=== PATIENT | female | born 1945 | race Caucasian/White ===

== ENCOUNTER → 2016-06-27 | Outpatient (CLI) | payer MEDICARE ==
--- NOTE | 2016-06-27 15:29 | CR ---
EXAMINATION: Left knee HISTORY: Artificial joint COMPARISON: 07/13/2015 TECHNIQUE: 3 views FINDINGS/IMPRESSION: There is stable left total knee hardware identified. No acute osseous abnormali ty or fracture. Mild prepatellar soft tissue thickening without an underlying joint effusion.
== END ==
LOC: MW.CHORTHO 08:00
PROVIDERS: ATTEND Orthopaedic Surgery
DX: Z96.652 Presence of left artificial knee joint (principal); M79.89 Other specified soft tissue disorders
CPT/HCPCS: 73562-26-LT; 73562-LT; G0463

== ENCOUNTER 2017-08-27 01:37 | Emergency (ER) | payer MEDICARE ==
[2017-08-27] MEDS ORDERED: Morphine 2 MG/ML Syringe IM ONE (03:17)
[2017-08-27] MEDS ORDERED: Ondansetron 4 MG Tab.DIS PO ONE (03:17)
--- NOTE | 2017-08-27 03:59 | EDM.PDOC ---
ED HPI GENERAL MEDICAL PROBLEM - General Chief Complaint: Back Pain or Injury Stated Complaint: BACK PAIN Time Seen by Provider: 08/27/17 03:59 - History of Present Illness INITIAL COMMENTS - FREE TEXT/NARRATIVE: HISTORY AND PHYSICAL: History of present illness: Patient 8-year-old female presents with a concern of low back pain she's had this over the last 2-3 days she denies any trauma there is been no numbness weakness incontinence or retention of bowel or bladder no urinary symptoms. Review of systems: As per history of present illness and below otherwise all systems reviewed and negative. Past medical history: As per history of present illness and as reviewed below otherwise noncontributory. Surgical history: As per history of present illness and as reviewed below otherwise noncontributory. Social history: No reported history of drug or alcohol abuse. Family history: As per history of present illness and as reviewed below otherwise noncontributory. Physical exam: HEENT: Atraumatic, normocephalic, pupils reactive, negative for conjunctival pallor or scleral icterus, mucous membranes moist, throat clear, neck supple, nontender, trachea midline. Lungs: Clear to auscultation, breath sounds equal bilaterally, chest nontender. Heart: S1S2, regular, negative for clicks, rubs, or JVD. Abdomen: Soft, nondistended, nontender. Negative for masses or hepatosplenomegaly. Negative for costovertebral tenderness. Pelvis: Stable nontender. Genitourinary: Deferred. Rectal: Deferred. Extremities: Atraumatic, negative for cords or calf pain. Neurovascular unremarkable. Neuro: Awake, alert, oriented. Cranial nerves II through XII unremarkable. Cerebellum unremarkable. Motor and sensory unremarkable throughout. Exam nonfocal. Back: Patient has no vertebral body or point tenderness more checks are unremarkable Diagnostics: CT lumbar spine UA Therapeutics: Morphine sulfate 2 mg IM Zofran 4 mg IM Impression: #1 low back pain Definitive disposition and diagnosis as appropriate pending reevaluation and review of above. Back Pain Score (Numeric/FACES): 7 - Related Data Allergies Allergy/AdvReac Type Severity Reaction Status Date / Time adhesive Allergy Rash Verified 08/27/17 02:20 Home Meds: Home Meds Aspirin [Halfprin] 81 mg PO DAILY 08/27/17 [History] Calcium Carbonate/Vitamin D3 [Calcium 600-Vit D3 400 Tablet] 1 tab PO DAILY [History] Citalopram Hydrobromide [Celexa] 40 mg PO DAILY 08/27/17 [History] Hydrochlorothiazide 1 tab PO DAILY 08/27/17 [History] Levothyroxine Sodium [Synthroid] 1 tab PO DAILY 08/27/17 [History] Losartan [Cozaar] 1 tab PO DAILY 08/27/17 [History] Metoprolol Succinate [Toprol XL] 1 tab PO DAILY 08/27/17 [History] Multivitamin [Daily Multiple Vitamin] 1 tab PO DAILY 08/27/17 [History] Simvastatin [Zocor] 40 mg PO DAILY 08/27/17 [History] metFORMIN HCl [Metformin HCl] 1 tab PO DAILY 08/27/17 [History] Past Medical History HEENT History: Reports: Other (See Below) Other HEENT History: has upper and lower dentures Cardiovascular History: Reports: High Cholesterol, Hypertension Respiratory History: Reports: None Gastrointestinal History: Reports: None Genitourinary History: Reports: None 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 Neurological History: Reports: None Psychiatric History: Reports: Depression Endocrine/Metabolic History: Reports: Obesity/BMI 30+ Hematologic History: Reports: None Immunologic History: Reports: None Oncologic (Cancer) History: Reports: Other (See Below) Other Oncologic History: skin Dermatologic History: Reports: Other (See Below) Other Dermatologic History: skin cancer on nose - Past Surgical History Head Surgeries/Procedures: Reports: None Respiratory Surgical History: Reports: None GI Surgical History: Reports: None Female Surgical History: Reports: None Endocrine Surgical History: Reports: None Neurological Surgical History: Reports: None Oncologic Surgical History: Reports: Other (See Below) Dermatological Surgical History: Reports: Other (See Below) Social & Family History - Tobacco Use Smoking Status *Q: Never Smoker ED ROS GENERAL - Review of Systems Review Of Systems: ROS reveals no pertinent complaints other than HPI. ED EXAM, GENERAL - Physical Exam Exam: See Below (See dictation) Course - Vital Signs Last Recorded V/S: Last Vital Signs Temp 36.2 C 08/27/17 01:47 Pulse 50 L 08/27/17 01:47 Resp 18 08/27/17 01:47 BP 181/77 H 08/27/17 01:47 Pulse Ox 99 08/27/17 01:47 - Orders/Labs/Meds Orders: Active Orders 24 hr Category Date Time Status Lumbar Spine wo Cont [CT] Stat Exams 08/27/17 02:00 Taken URINALYSIS W/MICROSCOPIC [UA W/MICROSCOPIC] [URIN] Stat Lab 08/27/17 02:50 Ordered Labs: Laboratory Tests 08/27/17 Range/Units 02:50 Urine Color YELLOW Urine Appearance CLEAR Urine pH 7.5 (5.0-8.0) Ur Specific [place] 1.015 (1.001-1.035) Urine Protein NEGATIVE (NEGATIVE) mg/dL Urine Glucose (UA) NEGATIVE (NEGATIVE) mg/dL Urine Ketones NEGATIVE (NEGATIVE) mg/dL Urine Occult Blood NEGATIVE (NEGATIVE) Urine Nitrite NEGATIVE (NEGATIVE) Urine Bilirubin NEGATIVE (NEGATIVE) Urine Urobilinogen 0.2 (<2.0) EU/dL Ur Leukocyte Esterase SMALL (NEGATIVE) Urine RBC 0-2 (0-2/HPF) Urine WBC 2-6 (0-5/HPF) Ur Epithelial Cells OCCASIONAL (NONE-FEW) Urine Bacteria FEW (NEGATIVE) Meds: Medications Discontinued Medications Generic Name Dose Route Start Last Admin Trade Name Freq PRN Reason Stop Dose Admin Morphine Sulfate 2 mg 08/27/17 03:17 08/27/17 03:26 Morphine IM 08/27/17 03:18 2 mg ONETIME ONE Administration Ondansetron HCl 4 mg 08/27/17 03:17 08/27/17 03:26 Zofran Odt PO 08/27/17 03:18 4 mg ONETIME ONE Administration Departure - Departure Time of Disposition: 03:58 Disposition: Home, Self-Care 01 Condition: Good Clinical Impression: Low back pain - Discharge Information Referrals: Daniela Vences DO [Primary Care Provider] - Additional Instructions: The following information is given to patients seen in the emergency department who are being discharged to home. This information is to outline your options for follow-up care. We provide all patients seen in our emergency department with a follow-up referral. The need for follow-up, as well as the timing and circumstances, are variable depending upon the specifics of your emergency department visit. If you don't have a primary care physician on staff, we will provide you with a referral. We always advise you to contact your personal physician following an emergency department visit to inform them of the circumstance of the visit and for follow-up with them and/or the need for any referrals to a consulting specialist. The emergency department will also refer you to a specialist when appropriate. This referral assures that you have the opportunity for followup care with a specialist. All of these measure are taken in an effort to provide you with optimal care, which includes your followup. Under all circumstances we always encourage you to contact your private physician who remains a resource for coordinating your care. When calling for followup care, please make the office aware that this follow-up is from your recent emergency room visit. If for any reason you are refused follow-up, please contact the [facility] emergency department at and asked to speak to the emergency department charge nurse. Cipro as prescribed Motrin/Tylenol as directed follow-up primary medical doctor return as needed as discussed - My Orders Last 24 Hours: My Active Orders 08/27/17 02:00 Lumbar Spine wo Cont [CT] Stat 08/27/17 02:50 URINALYSIS W/MICROSCOPIC [UA W/MICROSCOPIC] [URIN] Stat - Assessment/Plan Last 24 Hours: My Active Orders 08/27/17 02:00 Lumbar Spine wo Cont [CT] Stat 08/27/17 02:50 URINALYSIS W/MICROSCOPIC [UA W/MICROSCOPIC] [URIN] Stat
[2017-08-27 04:14] VITALS: BP 119/57
--- NOTE | 2017-08-27 11:35 | CT ---
EXAM DATE: 08/27/17 PATIENT'S AGE: 71 Patient: CAROLYN CORDOVA Facility: [place], [place] Site . Site : 1945 Study: CT Spine Lumbar [id number]/[id number] 2:20:29 AM Ordering Physician: Venus Mas Final Report: INDICATION: Low back pain for 4 days, no history of trauma TECHNIQUE: CT lumbar spine without contrast. COMPARISON: None FINDINGS: Vertebral alignment: There is 4 mm of anterolisthesis of L4 on L5. Vertebrae: Osteopenia. There are no fractures or suspicious bony lesions. Discs and facet joints: Mild to moderate multilevel degenerative disc disease. Severe multilevel degenerative facet disease. Extraspinal findings: Prevertebral soft tissues are unremarkable. There is colonic diverticulosis. IMPRESSION: No acute fracture. Mild anterolisthesis of L4 on L5 likely due to degenerative facet disease at this level. Mild to moderate multilevel degenerative disc disease. Colonic diverticulosis. Please note that all CT scans at this facility use dose modulation, iterative reconstruction, and/or weight-based dosing when appropriate to reduce radiation dose to as low as reasonably achievable. Dictated by Billie White MD @ Aug 27 2017 2:46AM (Electronic Signature) Report Signed by Proxy. [id number]
== END 2017-08-27 04:12 | disposition home or self-care (01) ==
LOC: MW.ED 01:37
DX: M54.5 Low back pain (principal); I10 Essential (primary) hypertension; E66.9 Obesity, unspecified; Z91.048 Other nonmedicinal substance allergy status; Z79.82 Long term (current) use of aspirin; Z79.899 Other long term (current) drug therapy
CPT/HCPCS: 72131; 81001; 96372; 99283; A9270; J2270

== ENCOUNTER 2018-05-25 06:23 | Inpatient (IN) | payer MEDICARE, OTHER ==
[~2018-05-25 06:23] MED LIST: Acetaminophen 1,000 MG in Premix Bag 1 BAG IV SCH; Famotidine 20 MG/2 ML SDV IVPUSH SCH; Ketorolac 15 MG/ML SDV IVPUSH SCH; Scopolamine 1.5 MG Transdermal Patch TRDERM SCH
[2018-05-25] MEDS: Lactated Ringers 1,000 ML IV SCH ×2 (07:20→14:11)
--- NOTE | 2018-05-25 07:49 | PCM.PREANE ---
Preanesthetic Assessment - Anesthesia/Transfusion/Family Hx Anesthesia History: Prior Anesthesia Reaction Other Type of Anesthesia Reaction Comment: 3-4 days of post op delerium, delayed hosp discharge Family History of Anesthesia Reaction: No Transfusion History: No Prior Transfusion(s) - Review of Systems General: No Symptoms Pulmonary: No Symptoms Cardiovascular: No Symptoms Gastrointestinal: No Symptoms Neurological: No Symptoms Other: Reports: Anxiety - Physical Assessment NPO Status Date: 05/25/18 NPO Status Time: 06:00 O2 Sat by Pulse Oximetry: 98 Respiratory Rate: 18 Vital Signs: Last Vital Signs Temp 96.3 F 05/25/18 07:00 Pulse 52 L 05/25/18 07:00 Resp 18 05/25/18 07:00 BP 148/58 H 05/25/18 07:00 Pulse Ox 98 05/25/18 07:00 Height: 5 ft 3 in Weight: 104.326 kg ASA Class: 3 Mental Status: Alert & Oriented x3 Airway Class: Mallampati = 2 Dentition: Reports: Dentures ROM/Head Extension: Full Lungs: Clear to Auscultation, Normal Respiratory Effort Cardiovascular: Regular Rate, Regular Rhythm - Allergies Allergies/Adverse Reactions: Allergies Allergy/AdvReac Type Severity Reaction Status Date / Time adhesive Allergy Rash Verified 05/19/18 14:23 - Anesthesia Plan Pre-Op Medication Ordered: Other (per surgeon: toradol, iv tylenol,) - Acknowledgements Anesthesia Type Planned: Spinal Pt an Appropriate Candidate for the Planned Anesthesia: Yes Alternatives and Risks of Anesthesia Discussed w Pt/Guardian: Yes Pt/Guardian Understands and Agrees with Anesthesia Plan: Yes Additional Comments: PMH: hx post op delerium, [place], thyroid replacement, htn, dm2, ckd3, ANGI PreAnesthesia Questionnaire HEENT History: Reports: Other (See Below) Other HEENT History: has upper and lower dentures Cardiovascular History: Reports: Blood Clots/VTE/DVT, High Cholesterol, Hypertension Other Cardiovascular History: hx blood clot to leg 48 years ago during her , has varicose veins Respiratory History: Reports: Other (See Below) Other Respiratory History: "possible sleep apnea, but has not been tested" Gastrointestinal History: Reports: None Genitourinary History: Reports: None 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: Musculoskeletal History: Reports: Osteoarthritis Neurological History: Reports: None Psychiatric History: Reports: Depression Endocrine/Metabolic History: Reports: Diabetes, Type II, Hypothyroidism, Obesity /BMI 30+ Hematologic History: Reports: None Immunologic History: Reports: None Oncologic (Cancer) History: Reports: Other (See Below) Other Oncologic History: skin Dermatologic History: Reports: None - Past Surgical History Head Surgeries/Procedures: Reports: None HEENT Surgical History: Reports: Adenoidectomy, Tonsillectomy Other HEENT Surgeries/Procedures: skin cancer removed from nose x2 Cardiovascular Surgical History: Reports: None Respiratory Surgical History: Reports: None GI Surgical History: Reports: None Female Surgical History: Reports: None Endocrine Surgical History: Reports: None Neurological Surgical History: Reports: None Musculoskeletal Surgical History: Reports: Knee Replacement Other Musculoskeletal Surgeries/Procedures:: hx left TKA Oncologic Surgical History: Reports: Other (See Below) Other Oncologic Surgeries/Procedures: removal of skin cancer on nose Dermatological Surgical History: Reports: Other (See Below) - SUBSTANCE USE Smoking Status *Q: Former Smoker Tobacco Use Within Last Twelve Months: No Recreational Drug Use History: No - HOME MEDS Home Medications: Home Meds Aspirin [Halfprin] 81 mg PO DAILY 08/27/17 [History] Calcium Carbonate/Vitamin D3 [Calcium 600-Vit D3 400 Tablet] 1 tab PO DAILY [History] Citalopram Hydrobromide [Celexa] 40 mg PO ACLUNCH 08/27/17 [History] Levothyroxine Sodium [Synthroid] 100 mcg PO DAILY 08/27/17 [History] Metoprolol Succinate [Toprol XL] 25 mg PO ACLUNCH 08/27/17 [History] Multivitamin [Daily Multiple Vitamin] 1 tab PO DAILY 08/27/17 [History] Simvastatin [Zocor] 40 mg PO DAILY 08/27/17 [History] metFORMIN HCl [Metformin HCl] 1,000 mg PO BEDTIME 08/27/17 [History] Losartan/Hydrochlorothiazide [Losartan-HCTZ 100-12.5 MG] 1 tab PO DAILY [History] - CURRENT (IN HOUSE) MEDS Current Meds: Current Medications Famotidine (Pepcid) 40 mg IVPUSH ONARRIVE RUSLAN Last Admin: 05/25/18 07:33 Dose: 40 mg Acetaminophen 1,000 mg/ Premix 100 mls @ 400 mls/hr IV ONARRIVE RUSLAN Last Admin: 05/25/18 07:33 Dose: 400 mls/hr Cefazolin Sodium/Dextrose 2 gm (/ Premix) 50 mls @ 100 mls/hr IV ONCALL RUSLAN Ropivacaine 49.25 ml/Ketorolac Tromethamine 30 mg/Epinephrine HCl 0.5 mg/ Clonidine HCl 80 mcg/ Sodium Chloride 75 mls @ 50 mls/sec INJECT ASDIRECTED RUSLAN Lactated Ringer's (Ringers, Lactated) 1,000 mls @ 100 mls/hr IV ASDIRECTED [facility] Last Admin: 05/25/18 07:20 Dose: 100 mls/hr Tranexamic Acid 2,000 mg/ (Sodium Chloride) 120 mls @ 600 mls/hr IV ASDIRECTED ONE Stop: 05/25/18 08:11 Ketorolac Tromethamine (Toradol) 15 mg IVPUSH ONARRIVE [facility] Last Admin: 05/25/18 07:29 Dose: 15 mg Scopolamine (Transderm-Scop) 1.5 mg TRDERM ONARRIVE [facility] Last Admin: 05/25/18 07:37 Dose: 1.5 mg Discontinued Medications Tranexamic Acid (Cyklokapron) Confirm Administered Dose 2,000 mg .ROUTE .STK- MED ONE Stop: 05/25/18 07:34
[2018-05-25] MEDS ORDERED: Propofol 200 MG/20 ML SDV ONE ×3 (07:56→09:18)
[2018-05-25] MEDS ORDERED: Ketorolac 30 MG/ML SDV ONE (07:59)
[2018-05-25] MEDS ORDERED: Ketamine 500 mg/10 ML MDV ONE (08:00)
[2018-05-25] MEDS ORDERED: Tranexamic Acid 2,000 MG in Sodium Chloride 0.9% 100 ML IV ONE (08:00)
[2018-05-25] MEDS ORDERED: ceFAZolin 2 GM in Premix Bag 1 BAG IV SCH (08:00)
[2018-05-25] MEDS ORDERED: Ropivacaine 49.25 ML, Ketorolac 30 MG, EPINEPHrine 0.5 MG, cloNIDine 80 MCG in Sodium C... INJECT SCH (08:00)
[2018-05-25] MEDS ORDERED: Ondansetron 4 MG/2 ML SDV ONE (08:28)
[2018-05-25] MEDS ORDERED: Dexamethasone 4 MG/ML 5 ML MDV ONE (08:28)
[2018-05-25] MEDS ORDERED: Scopolamine 1.5 MG Transdermal Patch TRDERM PRN (09:15)
[2018-05-25] MEDS ORDERED: Labetalol 100 MG/20 ML MDV IVPUSH PRN (09:15)
[2018-05-25] MEDS ORDERED: Albuterol 0.083% 2.5 MG/3 ML Neb Soln NEB PRN (09:15)
[2018-05-25] MEDS ORDERED: Morphine 4 MG/ML Syringe IVPUSH PRN (09:15)
[2018-05-25] MEDS ORDERED: Metoclopramide 10 MG/2 ML SDV IVPUSH PRN (09:15)
[2018-05-25] MEDS ORDERED: Acetaminophen/HYDROcodone 325-5 MG Tab PO PRN (09:15)
[2018-05-25] MEDS ORDERED: Atropine 0.1 MG/ML 10 ML Syringe IVPUSH PRN (09:15)
[2018-05-25] MEDS ORDERED: Ondansetron 4 MG/2 ML SDV IVPUSH PRN ×2 (09:15→09:58)
[2018-05-25] MEDS ORDERED: Meperidine PF 25 MG/ML Syringe IV PRN (09:15)
[2018-05-25] MEDS ORDERED: HYDROmorphone 2 MG/ML SDV IVPUSH PRN (09:15)
[2018-05-25] MEDS ORDERED: hydrALAZINE 20 MG/ML SDV IVPUSH PRN ×2 (09:15)
[2018-05-25] MEDS ORDERED: Naloxone 0.4 MG/ML Syringe IVPUSH PRN (09:15)
[2018-05-25] MEDS ORDERED: Meperidine PF 25 MG/ML Syringe IVPUSH PRN (09:15)
[2018-05-25] MEDS ORDERED: Promethazine 25 MG/ML SDV IM PRN (09:15)
[2018-05-25] MEDS ORDERED: fentaNYL 100 MCG/2 ML SDV IVPUSH PRN (09:15)
[2018-05-25] MEDS ORDERED: Sodium Chloride 0.9% 10 ML Syringe FLUSH PRN (09:58)
[2018-05-25] MEDS ORDERED: diphenhydrAMINE 25 MG Cap PO PRN (09:58)
[2018-05-25] MEDS ORDERED: Sodium Chloride 0.9% 2.5 ML Syringe FLUSH PRN (09:58)
[2018-05-25] MEDS ORDERED: Bisacodyl 10 MG Supp RECTAL PRN (09:58)
[2018-05-25] MEDS ORDERED: Docusate Sodium 100 MG Cap PO PRN (09:58)
[2018-05-25] MEDS ORDERED: Aluminum Hydroxide/Magnesium Hydroxide/Simethicone Susp 30 ML Cup PO PRN (09:58)
[2018-05-25] MEDS ORDERED: Ketorolac 15 MG/ML SDV IVPUSH SCH (10:00)
--- NOTE | 2018-05-25 10:10 | PCM.OPNOTE ---
- General Post-Op/Procedure Note Date of Surgery/Procedure: 05/25/18 Operative Procedure(s): R TKA Post-Op Diagnosis: DJD R knee Anesthesia Technique: Moderate Sedation, Spinal Primary Surgeon: Susan Aldana Cap Inspector: Grecia Cornejo in mLs: 50 Condition: Good Free Text/Narrative:: tt=43 min #[id number]
--- NOTE | 2018-05-25 10:43 | PCM.POSTAN ---
POST ANESTHESIA ASSESSMENT - MENTAL STATUS Mental Status: Alert, Confused - VITAL SIGNS Pulse Rate: 48 SaO2: 99 Resp Rate: 14 Blood Pressure: 130/59 - RESPIRATORY Respiratory Status: Respiratory Rate WNL, Airway Patent, O2 Saturation Stable - CARDIOVASCULAR CV Status: Pulse Rate WNL, Blood Pressure Stable - GASTROINTESTINAL GI Status: No Symptoms - PAIN Pain Score: 0 - POST OP HYDRATION Hydration Status: Adequate & Stable - OBSERVATIONS Free Text/Narrative:: Patient is confused post-op. She has a history of post-op delirium. Patient will also be placed on tele overnight due HR 35-50 in PACU.
[2018-05-25] MEDS ORDERED: Metoprolol Succinate 25 MG Tab.ER PO SCH (11:30)
[2018-05-25] MEDS: Citalopram 20 MG Tab PO SCH (11:39)
[2018-05-25] MEDS: Insulin Aspart 100 Units/ML 3 ML Pen SUBCUT SCH ×2 (11:46→18:30)
--- NOTE | 2018-05-25 12:11 | PCM.CONS ---
H&P History of Present Illness - General Date of Service: 05/25/18 Admit Problem/Dx: Admission Diagnosis/Problem Admission Diagnosis/Problem Replacement of total knee joint Source of Information: Patient History Limitations: Reports: No Limitations - History of Present Illness Initial Comments - Free Text/Narative: This 72 year old female with pmh of HTN, DM type 2, and osteoarthritis presented for R TKA today with Dr Aldana. Hospitalist service consulted for medical management. Mariaelena arrived t M?S from PACU. She is alert and oriented. Reports feeling well currently. Denies lightheadedness of dizziness. No chest pain or other concerns. Daughter and granddaughter at bedside. She reports feeling a lot better after surgery than her last, L knee. She reports she was very disoriented and does not remember much of anything after that surgery. We did discuss her low heart rate, she reports at home it is in the 40s some times. She reports she has never had a heart attack and does not have an arrhythmia. She thinks she takes it for blood pressure control only. She reports feeling tired all the time. She may benefit from holding Metoprolol and following up with PCP as outpatient. She was encouraged to monitor HR and BP at home and then to see PCP to evaluate on stopping this indefinitely. PCP, Dr Venecs. - Related Data Allergies/Adverse Reactions: Allergies Allergy/AdvReac Type Severity Reaction Status Date / Time adhesive Allergy Rash Verified 05/19/18 14:23 Home Medications: Home Meds Aspirin [Halfprin] 81 mg PO DAILY 08/27/17 [History] Calcium Carbonate/Vitamin D3 [Calcium 600-Vit D3 400 Tablet] 1 tab PO DAILY [History] Citalopram Hydrobromide [Celexa] 40 mg PO ACLUNCH 08/27/17 [History] Levothyroxine Sodium [Synthroid] 100 mcg PO DAILY 08/27/17 [History] Metoprolol Succinate [Toprol XL] 25 mg PO ACLUNCH 08/27/17 [History] Multivitamin [Daily Multiple Vitamin] 1 tab PO DAILY 08/27/17 [History] Simvastatin [Zocor] 40 mg PO DAILY 08/27/17 [History] metFORMIN HCl [Metformin HCl] 1,000 mg PO BEDTIME 08/27/17 [History] Losartan/Hydrochlorothiazide [Losartan-HCTZ 100-12.5 MG] 1 tab PO DAILY [History] Past Medical History HEENT History: Reports: Other (See Below) Other HEENT History: has upper and lower dentures Cardiovascular History: Reports: Blood Clots/VTE/DVT, High Cholesterol, Hypertension. Denies: CAD, [place] Other Cardiovascular History: hx blood clot to leg 48 years ago during her , has varicose veins Respiratory History: Reports: Other (See Below). Denies: Asthma, COPD Other Respiratory History: "possible sleep apnea, but has not been tested" Gastrointestinal History: Reports: None. Denies: GERD Genitourinary History: Reports: None. 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 Denies: CVA, TIA Psychiatric History: Reports: Depression Endocrine/Metabolic History: Reports: Diabetes, Type II, Hypothyroidism, Obesity /BMI 30+ Hematologic History: Reports: None Immunologic History: Reports: None Oncologic (Cancer) History: Reports: Other (See Below) Other Oncologic History: skin Dermatologic History: Reports: None - Past Surgical History Head Surgeries/Procedures: Reports: None HEENT Surgical History: Reports: Adenoidectomy, Tonsillectomy Other HEENT Surgeries/Procedures: skin cancer removed from nose x2 Cardiovascular Surgical History: Reports: None Respiratory Surgical History: Reports: None GI Surgical History: Reports: None Female Surgical History: Reports: None Endocrine Surgical History: Reports: None Neurological Surgical History: Reports: None Musculoskeletal Surgical History: Reports: Knee Replacement Other Musculoskeletal Surgeries/Procedures:: hx left TKA Oncologic Surgical History: Reports: Other (See Below) Other Oncologic Surgeries/Procedures: removal of skin cancer on nose Dermatological Surgical History: Reports: Other (See Below) Social & Family History - Tobacco Use Smoking Status *Q: Former Smoker Used Tobacco, but Quit: Yes Month/Year Tobacco Last Used: quit smoking 40 years ago - Alcohol Use Alcohol Use History: No - Recreational Drug Use Recreational Drug Use: No - Living Situation & Occupation Living situation: Reports: Alone Occupation: Retired H&P Review of Systems - Review of Systems: Review Of Systems: See Below General: Reports: No Symptoms. Denies: Fever, Chills, Malaise HEENT: Reports: No Symptoms. Denies: Headaches, Sinus Congestion, Sore Throat, Vertigo Pulmonary: Denies: Shortness of Breath, Cough, Sputum Cardiovascular: Reports: No Symptoms. Denies: Chest Pain, Palpitations, Edema, Lightheadedness Gastrointestinal: Reports: No Symptoms. Denies: Abdominal Pain, Black Stool, Bloody Stool, Nausea, Vomiting Genitourinary: Reports: No Symptoms. Denies: Dysuria, Frequency, Burning Musculoskeletal: Reports: No Symptoms Skin: Reports: No Symptoms Psychiatric: Reports: No Symptoms Neurological: Reports: No Symptoms Hematologic/Lymphatic: Reports: No Symptoms Immunologic: Reports: No Symptoms Exam - Exam Exam: See Below - Vital Signs Vital Signs: Last Vital Signs Temp 97.7 F 05/25/18 09:55 Pulse 44 L 05/25/18 11:41 Resp 16 05/25/18 10:50 BP 113/54 L 05/25/18 11:41 Pulse Ox 100 05/25/18 10:50 Weight: 104.326 kg - Exam General: Alert, Oriented, Cooperative HEENT: Conjunctiva Clear, Posterior Pharynx Clear Lungs: Clear to Auscultation, Normal Respiratory Effort Cardiovascular: Regular Rhythm, Bradycardia. No: Systolic Murmur GI/Abdominal Exam: Normal Bowel Sounds Back Exam: Normal Inspection, Full Range of Motion Extremities: Normal Inspection, Normal Range of Motion, Non-Tender, No Pedal Edema Skin: Incision (R TKA dressing intact.) Neuro Extensive - Mental Status: Alert, Oriented x3, Normal Mood/Affect Neuro Extensive - Motor, Sensory, Reflexes: CN II-XII Intact Psychiatric: Alert, Normal Affect, Normal Mood - Patient Data Lab Results Last 24 hrs: Laboratory Results - last 24 hr 05/25/18 05/25/18 05/25/18 Range/Units 07:02 10:16 11:45 POC Glucose 108 123 H (60-110) mg/dL Blood Type AB POSITIVE Antibody Screen NEGATIVE Consult PN Assessment/Plan Procedures: Procedures BLOOD TYPING SEROLOGIC ABO (07/03/15) BLOOD TYPING SEROLOGIC RH(D) (07/03/15) CT LUMBAR SPINE W/O DYE (08/27/17) DECALCIFY TISSUE (07/03/15) EMERGENCY DEPT VISIT (08/27/17) GAIT TRAINING THERAPY (07/03/15) HEMATOCRIT (07/03/15) HEMOGLOBIN (07/03/15) INSERT BLADDER CATH COMPLEX (07/03/15) MEDICAL NUTRITION INDIV IN (07/03/15) MRI JNT OF LWR EXTRE W/O DYE (04/09/18) OFFICE/OUTPATIENT VISIT EST (03/30/18) PT EVALUATION (07/03/15) RBC ANTIBODY SCREEN (07/03/15) ROUTINE VENIPUNCTURE (07/03/15) THER/PROPH/DIAG INJ SC/IM (08/27/17) THERAPEUTIC ACTIVITIES (07/03/15) THERAPEUTIC EXERCISES (07/03/15) TISSUE EXAM BY PATHOLOGIST (07/03/15) TISSUE EXAM BY PATHOLOGIST (09/22/14) URINALYSIS AUTO W/SCOPE (08/27/17) X-RAY EXAM KNEE 4 OR MORE (03/30/18) X-RAY EXAM OF KNEE 1 OR 2 (07/03/15) X-RAY EXAM OF KNEE 3 (06/27/16) (1) S/P total knee arthroplasty SNOMED Code(s): 3604278561375, 728078170, 3139643608471 Code(s): Z96.659 - PRESENCE OF UNSPECIFIED ARTIFICIAL KNEE JOINT Current Visit: Yes Qualifiers: Laterality: right Qualified Code(s): Z96.651 - Presence of right artificial knee joint (2) Bradycardia SNOMED Code(s): 31006357 Code(s): R00.1 - BRADYCARDIA, UNSPECIFIED Current Visit: Yes (3) HTN (hypertension) SNOMED Code(s): 16436532 Code(s): I10 - ESSENTIAL (PRIMARY) HYPERTENSION Current Visit: Yes Qualifiers: Hypertension type: essential hypertension Qualified Code(s): I10 - Essential (primary) hypertension (4) DM type 2 (diabetes mellitus, type 2) SNOMED Code(s): 61369590 Code(s): E11.9 - TYPE 2 DIABETES MELLITUS WITHOUT COMPLICATIONS Current Visit: Yes Qualifiers: Diabetes mellitus skilled nursing insulin use: without skilled nursing use Diabetes mellitus complication status: without complication Qualified Code(s): E11.9 - Type 2 diabetes mellitus without complications (5) Hypothyroidism SNOMED Code(s): 86185545 Code(s): E03.9 - HYPOTHYROIDISM, UNSPECIFIED Current Visit: Yes Problem List Initiated/Reviewed/Updated: Yes My Orders Last 24 Hours: My Active Orders 05/25/18 10:23 BMP [BASIC METABOLIC PANEL,BMP] [CHEM] Routine CBC WITH AUTO DIFF [HEME] Routine 05/25/18 11:30 Insulin Aspart [NovoLOG] See Protocol SUBCUT TIDAC Plan: This 72 year old female admitted with R TKA, Hospitalist service consulted for medical management with comorbidities 1. S/P R TKA: Orders per Orthopedics 2. Bradycardia: Appears at times she is in the 40s at home as well, per her report. Will hold Metoprolol and monitor. She denies dizziness, lightheadedness or chest pain. Monitor on Telemetry. She may need to be off Metoprolol and follow with PCP regarding indefinitely stopping this. 3. HTN: Monitor post-operatively. Continue Losartan/HCTZ. Will discontinue Toradol and Celebrex due to cardiac risk profile and risk of SAMIRA due to DM. 4. DM Type 2: Hold Metformin during hospital stay, cover with Novolog SSI. May resume Metformin upon discharge home. 5. Hypothyroidism: Stable. Continue Levothyroxine. VTE prophylaxis: Recommended when deemed appropriate by Orthopedics. ASA 325 mg ordered BID.
[2018-05-25] MEDS: Acetaminophen 1,000 MG in Premix Bag 1 BAG IV SCH ×2 (13:41→18:32)
--- NOTE | 2018-05-25 16:34 | OR ---
SURGEON: Susan Aldana MD DATE OF PROCEDURE: 05/25/2018 PREOPERATIVE DIAGNOSIS: Degenerative joint disease, right knee, tricompartmental. POSTOPERATIVE DIAGNOSIS: Degenerative joint disease, right knee, tricompartmental. PROCEDURE: Right total knee arthroplasty using standard instrumentation. RADIO REPAIRMAN: Grecia Cornejo PA-C ANESTHESIA: Spinal with sedation. ESTIMATED BLOOD LOSS: 50 mL. TOURNIQUET TIME: 43 minutes. COMPLICATIONS: None. DVT PROPHYLAXIS: PAS boot and MILES hose to the nonoperative leg. IMPLANTS USED: Seble Persona femoral component size 6 narrow (LPS), tibial component size D, 10-mm all-polyethylene articular surface, and 29-mm all-polyethylene patella. FINDINGS: Intraoperative findings showed severe tricompartmental degenerative changes with eburnation of the bone along the patella with osteophyte formation. Grade 4 chondromalacia was noted in all three compartments. A large loose body was also found. No significant synovitis was noted. BRIEF HISTORY: Mariaelena is a 72-year-old female who has had complaint of progressive right knee pain. She has previously undergone a left total knee arthroplasty and has done well. Due to her lack of response to conservative treatment on the right, I recommended that she undergo surgical intervention. The risks and goals of the procedure were discussed with the patient and were documented preoperatively. She agreed to proceed. DESCRIPTION OF PROCEDURE: The patient was properly identified and brought to the operating room. The patient was then transferred from the operating room cart and placed on the operating table in a supine position. Anesthesia was administered by the anesthesia staff. After adequate anesthesia was obtained, a well-padded tourniquet was applied to the surgical lower extremity. Batista catheter was placed. The lower extremity was then prepped in standard fashion using ChloraPrep solution. It was then sterilely draped. A time-out was performed to ensure correct site and procedure. Preoperative antibiotics were given along with one gram tranexamic acid IV. The surgical site had been marked preoperatively. An Esmarch was used to exsanguinate the right lower extremity and the tourniquet was inflated. An incision was made over the anterior aspect of the knee. The subcutaneous tissues were dissected down to the level of the fascia. A medial parapatellar approach to the knee was made. A portion of the infrapatellar fat pad was then excised. The distal femur was then exposed. The step reamer was used to gain access to the intramedullary canal. This was placed in 6 degrees of valgus. Pins were placed. The distal femoral cutting block was placed and the distal femoral cut was made. Instrumentation was then removed. The femur was then sized. Both Whitesides' line and the epicondylar axis were then marked with electrocautery. The 4-in-1 cutting block was placed. This was placed in a slightly externally rotated position, which corresponded well with the previously drawn lines. The cutting guide was then pinned into position. An Jeffry wing guide was used to check the depth of resection of our anterior condylar cut and it was felt that no notching would occur. The anterior condylar cut was then made followed by the posterior condylar cut. Both the posterior chamfer and anterior chamfer cuts were then made. The cutting block was then removed along with the excess bony remnants. We then turned our attention to the tibia. The anterior cruciate ligament and posterior cruciate ligament were released and a posterior cruciate ligament retractor was placed to allow the tibia to be pulled anteriorly. The tibial extra-medullary guide was then positioned. We chose to take approximately 2 mm off the lowest side. The proximal tibia cutting guide was then placed and screwed into position. The proximal tibial resection was then made with care being taken to protect the patellar tendon. The bony resection was then removed. The remainder of the medial and lateral meniscus were then excised. Care was taken to protect the popliteus tendon. The tibia was then sized to the appropriate size. The distal femur was then elevated. The posterior capsule was stripped off the distal femur both medially and laterally. The posterior capsule along with the medial and lateral gutters were then injected with a standard mixture consisting of clonidine, epinephrine, Toradol, and Ropivacaine, unless any allergies were found preoperatively. The femoral component was then placed onto the distal femur in a slightly lateral position. This fit the femur well. A box cut was then made without difficulty. This was then removed. The tibial trial along with the polyethylene liner was then placed. The knee came easily into full extension and was stable to varus and valgus stressing both in full extension and flexion. Any additional releases were performed at this time. We then returned our attention to the patella. The patella was everted and towel clamps were used to hold the patella in position. It was resected to a 15 millimeter thickness. It was then sized to the appropriate size. It was prepared in the usual fashion after placing the predetermined size clamps. This was placed in a slightly superior and medial position. The clamp was then removed. The patellar trial button was placed. The knee was taken through a range of motion using the no-touch technique. The patella tracked centrally. A drop pj was then placed to check alignment. All instruments were then removed from the knee. The tibial sizer was then placed on the tibia. The tibia was prepared in the usual fashion using the reamer and broach. This was then removed. All bony surfaces were copiously irrigated with Pulsavac solution. They were then suctioned dry. Cement was prepared on the back table in the usual manner. Antibiotic impregnated cement was used if the patient was diabetic. Once it was prepared, the bone ends were again suctioned dry. The tibia was cemented into place first. This was malleted into position. Excess cement was then cleared. The femur was then placed in a similar manner. We placed the polyethylene trial into place and the knee was brought into full extension. An axial load was placed while keeping the knee in full extension. The patella button was also cemented into position and the clamp was used to hold this in place as the cement was allowed to cure. The wound was copiously irrigated with saline using a Pulsavac geomatics professor. Following this, 1 gram of tranexamic acid was applied topically to the wound during the curing process. After we had adequate curing of the cement, the knee was again taken through a range of motion. The size of the polyethylene was then determined. The polyethylene trial was then removed. The tibial tray was suctioned to make sure there was no remaining soft tissue or cement. Excess cement was cleared from around the edges of the prosthesis as well. The tourniquet was then deflated. We were able to observe for any excess bleeding and none was noted. Electrocautery was used to maintain hemostasis. An additional gram of tranexamic acid was given IV. The retractors were again placed and the predetermined polyethylene was then placed. This was locked into position without difficulty. The knee was again taken through a range of motion with no change from the prior exam. The fascial layer was closed with Number One Vicryl. The subcutaneous tissues were closed with 2-0 Vicryl. The skin was closed with susan. Xeroform gauze was placed over the wound and a bulky dressing was applied. The patient was then awakened from anesthesia and transferred back to the operating room cart. They were brought to the recovery room in stable condition. All needle and sponge counts were correct. AAKASH FENTON /[id number]
--- NOTE | 2018-05-25 16:38 | CR ---
EXAMINATION: Right knee HISTORY: Arthroplasty COMPARISON: 03/30/2018 TECHNIQUE: 2 views FINDINGS/IMPRESSION: Right total knee hardware is demonstrated in good position and alignment. Postoperative soft tissue changes noted.
[2018-05-25] MEDS: ceFAZolin 2 GM in Premix Bag 1 BAG IV SCH (17:08)
[2018-05-25] MEDS: Morphine 2 MG/ML Syringe IVPUSH PRN ×2 (17:09→20:20)
[2018-05-25] MEDS ORDERED: Ketorolac 30 MG/ML SDV IVPUSH ONE (22:30)
[2018-05-25] MEDS: oxyCODONE 5 MG Tab PO PRN (22:54)
[2018-05-26] MEDS: ceFAZolin 2 GM in Premix Bag 1 BAG IV SCH (01:19)
[2018-05-26] MEDS: Acetaminophen 1,000 MG in Premix Bag 1 BAG IV SCH (01:20)
[2018-05-26] MEDS: Morphine 2 MG/ML Syringe IVPUSH PRN (03:19)
[2018-05-26] MEDS: oxyCODONE 5 MG Tab PO PRN ×5 (04:38→20:04)
[2018-05-26] MEDS ORDERED: Acetaminophen/HYDROcodone 325-5 MG Tab PO PRN (06:00)
[2018-05-26] MEDS: Acetaminophen 500 MG Tab PO SCH ×3 (06:22→18:51)
[2018-05-26] MEDS ORDERED: Acetaminophen 500 MG Tab PO SCH (07:00)
[2018-05-26] MEDS ORDERED: Ketorolac 30 MG/ML SDV IVPUSH SCH (07:00)
--- NOTE | 2018-05-26 07:58 | PCM.CONSN ---
- General Info Date of Service: 05/26/18 Admission Dx/Problem (Free Text): Admission Diagnosis/Problem Admission Diagnosis/Problem Replacement of total knee joint Subjective Update: Feeling good this morning, no chest pain or shortness of breath. No dizziness or lightheadedness. Eager to go home today . Functional Status: Reports: Pain Controlled - Review of Systems General: Reports: No Symptoms. Denies: Fever, Weakness HEENT: Reports: No Symptoms Pulmonary: Reports: No Symptoms. Denies: Shortness of Breath Cardiovascular: Reports: No Symptoms. Denies: Chest Pain, Lightheadedness Gastrointestinal: Reports: No Symptoms. Denies: Abdominal Pain Genitourinary: Reports: No Symptoms. Denies: Dysuria, Frequency Musculoskeletal: Reports: No Symptoms Skin: Reports: No Symptoms Neurological: Reports: No Symptoms Psychiatric: Reports: No Symptoms - Patient Data Vitals - Most Recent: Last Vital Signs Temp 97.8 F 05/26/18 07:00 Pulse 54 L 05/26/18 07:00 Resp 16 05/26/18 07:00 BP 130/57 L 05/26/18 07:00 Pulse Ox 93 L 05/26/18 07:00 Weight - Most Recent: 104.326 kg I&O - Last 24 Hours: Intake & Output 05/25/18 05/26/18 05/26/18 22:59 06:59 14:59 Intake Total 941 300 Output Total 300 850 Balance 641 -550 Lab Results Last 24 Hours: Laboratory Results - last 24 hr 05/25/18 05/25/18 05/25/18 Range/Units 10:16 11:45 12:24 WBC 6.09 (4.0-11.0) K/uL RBC 4.31 (4.30-5.90) M/uL Hgb 13.5 (12.0-16.0) g/dL Hct 39.3 (36.0-46.0) % MCV 91.2 (80.0-98.0) fL MCH 31.3 (27.0-32.0) pg MCHC 34.4 (31.0-37.0) g/dL RDW Std Deviation 44.7 (28.0-62.0) fl RDW Coeff of [place]aga 14 (11.0-15.0) % Plt Count 153 (150-400) K/uL MPV 10.00 (7.40-12.00) fL Neut % (Auto) 79.0 (48.0-80.0) % Lymph % (Auto) 18.7 (16.0-40.0) % [place] % (Auto) 1.8 (0.0-15.0) % Eos % (Auto) 0.3 (0.0-7.0) % Baso % (Auto) 0.2 (0.0-1.5) % Neut # (Auto) 4.8 (1.4-5.7) K/uL Lymph # (Auto) 1.1 (0.6-2.4) K/uL [place] # (Auto) 0.1 (0.0-0.8) K/uL Eos # (Auto) 0.0 (0.0-0.7) K/uL Baso # (Auto) 0.0 (0.0-0.1) K/uL Nucleated RBC % 0.0 /100WBC Nucleated RBCs # 0 K/uL Sodium (136-145) mmol/L Potassium (3.5-5.1) mmol/L Chloride (98-107) mmol/L Carbon Dioxide (21.0-32.0) mmol/L BUN (7.0-18.0) mg/dL Creatinine (0.6-1.0) mg/dL Est Cr Clr Drug Dosing mL/min Estimated GFR (MDRD) ml/min Glucose (74-106) mg/dL POC Glucose 108 123 H (60-110) mg/dL Calcium (8.5-10.1) mg/dL 05/25/18 05/25/18 05/25/18 Range/Units 12:24 16:32 23:01 WBC (4.0-11.0) K/uL RBC (4.30-5.90) M/uL Hgb (12.0-16.0) g/dL Hct (36.0-46.0) % MCV (80.0-98.0) fL MCH (27.0-32.0) pg MCHC (31.0-37.0) g/dL RDW Std Deviation (28.0-62.0) fl RDW Coeff of [place] (11.0-15.0) % Plt Count (150-400) K/uL MPV (7.40-12.00) fL Neut % (Auto) (48.0-80.0) % Lymph % (Auto) (16.0-40.0) % [place] % (Auto) (0.0-15.0) % Eos % (Auto) (0.0-7.0) % Baso % (Auto) (0.0-1.5) % Neut # (Auto) (1.4-5.7) K/uL Lymph # (Auto) (0.6-2.4) K/uL [place] # (Auto) (0.0-0.8) K/uL Eos # (Auto) (0.0-0.7) K/uL Baso # (Auto) (0.0-0.1) K/uL Nucleated RBC % /100WBC Nucleated RBCs # K/uL Sodium 137 (136-145) mmol/L Potassium 4.2 (3.5-5.1) mmol/L Chloride 104 (98-107) mmol/L Carbon Dioxide 21.1 (21.0-32.0) mmol/L BUN 22 H (7.0-18.0) mg/dL Creatinine 1.4 H (0.6-1.0) mg/dL Est Cr Clr Drug Dosing 30.49 mL/min Estimated GFR (MDRD) 37.1 ml/min Glucose 181 H (74-106) mg/dL POC Glucose 157 H 338 H (60-110) mg/dL Calcium 8.5 (8.5-10.1) mg/dL 05/26/18 05/26/18 05/26/18 Range/Units 05:20 05:20 06:28 WBC (4.0-11.0) K/uL RBC (4.30-5.90) M/uL Hgb 12.4 (12.0-16.0) g/dL Hct 35.5 L (36.0-46.0) % MCV (80.0-98.0) fL MCH (27.0-32.0) pg MCHC (31.0-37.0) g/dL RDW Std Deviation (28.0-62.0) fl RDW Coeff of [place] (11.0-15.0) % Plt Count (150-400) K/uL MPV (7.40-12.00) fL Neut % (Auto) (48.0-80.0) % Lymph % (Auto) (16.0-40.0) % [place] % (Auto) (0.0-15.0) % Eos % (Auto) (0.0-7.0) % Baso % (Auto) (0.0-1.5) % Neut # (Auto) (1.4-5.7) K/uL Lymph # (Auto) (0.6-2.4) K/uL [place] # (Auto) (0.0-0.8) K/uL Eos # (Auto) (0.0-0.7) K/uL Baso # (Auto) (0.0-0.1) K/uL Nucleated RBC % /100WBC Nucleated RBCs # K/uL Sodium 135 L (136-145) mmol/L Potassium 4.5 (3.5-5.1) mmol/L Chloride 100 (98-107) mmol/L Carbon Dioxide 24.1 (21.0-32.0) mmol/L BUN 30 H (7.0-18.0) mg/dL Creatinine 1.4 H (0.6-1.0) mg/dL Est Cr Clr Drug Dosing 30.49 mL/min Estimated GFR (MDRD) 37.1 ml/min Glucose 182 H (74-106) mg/dL POC Glucose 165 H (60-110) mg/dL Calcium 8.4 L (8.5-10.1) mg/dL Med Orders - Current: Current Medications Acetaminophen (Tylenol Extra Strength) 1,000 mg PO Q6H [facility] Last Admin: 05/26/18 06:22 Dose: 1,000 mg Al Hydroxide/Mg Hydroxide (Mag-Al Plus) 30 ml PO Q4H PRN PRN Reason: Indigestion Aspirin (Aspirin) 325 mg PO BID [facility] Bisacodyl (Dulcolax) 10 mg RECTAL DAILY PRN PRN Reason: Constipation Citalopram Hydrobromide (Celexa) 40 mg PO ACLUNCH [facility] Last Admin: 05/25/18 11:39 Dose: 40 mg Diphenhydramine HCl (Benadryl) 25 - 50 mg PO Q6H PRN PRN Reason: Itching Docusate Sodium (Colace) 100 mg PO BID PRN PRN Reason: Constipation Famotidine (Pepcid) 40 mg IVPUSH ONARRIVE [facility] Last Admin: 05/25/18 07:33 Dose: 40 mg Famotidine (Pepcid) 40 mg PO DAILY [facility] Cefazolin Sodium/Dextrose 2 gm (/ Premix) 50 mls @ 100 mls/hr IV ONCALL [facility] Last Admin: 05/25/18 23:57 Dose: 100 mls/hr Lactated Ringer's (Ringers, Lactated) 1,000 mls @ 100 mls/hr IV ASDIRECTED [facility] Last Admin: 05/25/18 14:11 Dose: 100 mls/hr Insulin Aspart (Novolog) 0 unit SUBCUT TIDAC [facility]; Protocol Last Admin: 05/25/18 18:30 Dose: 1 unit Ketorolac Tromethamine (Toradol) 15 mg IVPUSH ONARRIVE [facility] Last Admin: 05/25/18 07:29 Dose: 15 mg Levothyroxine Sodium (Synthroid) 100 mcg PO DAILY [facility] Morphine Sulfate (Morphine) 1 - 3 mg IVPUSH Q3H PRN PRN Reason: Pain Last Admin: 05/26/18 03:19 Dose: 3 mg Multivitamins/Minerals/Vitamin C (Tab-A-Edgar) 1 tab PO DAILY [facility] Ondansetron HCl (Zofran) 8 mg IVPUSH ONETIME PRN PRN Reason: Nausea Ondansetron HCl (Zofran) 4 mg IVPUSH Q6H PRN PRN Reason: Nausea/Vomiting Last Admin: 05/25/18 10:21 Dose: 4 mg Oxycodone HCl (Oxycodone) 5 mg PO Q4H PRN PRN Reason: Pain Last Admin: 05/26/18 04:38 Dose: 5 mg Polyethylene Glycol (Miralax) 17 gm PO DAILY [facility] Scopolamine (Transderm-Scop) 1.5 mg TRDERM ONARRIVE [facility] Last Admin: 05/25/18 07:37 Dose: 1.5 mg Simvastatin (Zocor) 40 mg PO DAILY [facility] Sodium Chloride (Saline Flush) 10 ml FLUSH ASDIRECTED PRN PRN Reason: Keep Vein Open Sodium Chloride (Saline Flush) 2.5 ml FLUSH ASDIRECTED PRN PRN Reason: Keep Vein Open Discontinued Medications Acetaminophen (Tylenol Extra Strength) 1,000 mg PO Q6H [facility] Hydrocodone Bitart/Acetaminophen ([place] 325-5 Mg) 2 tab PO Q6H PRN PRN Reason: Pain (moderate 4-6) Hydrocodone Bitart/Acetaminophen ([place] 325-5 Mg) 1 - 2 tab PO Q4H PRN PRN Reason: Pain (moderate 4-6) Albuterol (Proventil Neb Soln) 2.5 mg NEB Q6HRRT PRN PRN Reason: Wheezing Atropine Sulfate (Atropine 0.1 Mg/Ml) 0.4 mg IVPUSH Q5M PRN PRN Reason: Bradycardia Celecoxib (Celebrex) 200 mg PO BID [facility] Dexamethasone (Dexamethasone) Confirm Administered Dose 20 mg .ROUTE .STK-MED ONE Stop: 05/25/18 08:29 Fentanyl (Sublimaze) 50 mcg IVPUSH Q5M PRN PRN Reason: Pain (severe 7-10) Stop: 05/26/18 09:15 Hydralazine HCl (Apresoline) 5 mg IVPUSH ONETIME PRN PRN Reason: Hypertension Hydralazine HCl (Apresoline) 10 mg IVPUSH ONETIME PRN PRN Reason: Hypertension Hydrochlorothiazide (Hydrochlorothiazide) 12.5 mg PO DAILY [facility] Hydromorphone HCl (Dilaudid) 0.25 mg IVPUSH Q10M PRN PRN Reason: Pain (severe 7-10) Stop: 05/26/18 09:15 Acetaminophen 1,000 mg/ Premix 100 mls @ 400 mls/hr IV ONARRIVE [facility] Last Admin: 05/25/18 07:33 Dose: 400 mls/hr Ropivacaine 49.25 ml/Ketorolac Tromethamine 30 mg/Epinephrine HCl 0.5 mg/ Clonidine HCl 80 mcg/ Sodium Chloride 75 mls @ 50 mls/sec INJECT ASDIRECTED [facility] Tranexamic Acid 2,000 mg/ (Sodium Chloride) 120 mls @ 600 mls/hr IV ASDIRECTED ONE Stop: 05/25/18 08:11 Last Admin: 05/25/18 10:34 Dose: Not Given Acetaminophen 1,000 mg/ Premix 100 mls @ 400 mls/hr IV Q6H [facility] Stop: 05/26/18 01:14 Last Admin: 05/26/18 01:20 Dose: 400 mls/hr Cefazolin Sodium/Dextrose 2 gm (/ Premix) 50 mls @ 100 mls/hr IV Q8H [facility] Stop: 05/26/18 00:29 Last Admin: 05/26/18 01:19 Dose: Not Given Ketamine HCl (Ketalar) Confirm Administered Dose 500 mg .ROUTE .STK-MED ONE Stop: 05/25/18 08:01 Ketorolac Tromethamine (Toradol) Confirm Administered Dose 30 mg .ROUTE .STK- MED ONE Stop: 05/25/18 08:00 Ketorolac Tromethamine (Toradol) 15 mg IVPUSH Q6H [facility] Stop: 05/26/18 05:00 Last Admin: 05/25/18 11:13 Dose: 15 mg Ketorolac Tromethamine (Toradol) 30 mg IVPUSH Q6H [facility] Stop: 05/26/18 07:00 Last Admin: 05/26/18 06:23 Dose: 30 mg Ketorolac Tromethamine (Toradol) 30 mg IVPUSH ONETIME ONE Stop: 05/25/18 22:31 Last Admin: 05/25/18 22:53 Dose: 30 mg Labetalol HCl (Normodyne) 10 mg IVPUSH Q6H PRN PRN Reason: Hypertension Stop: 05/26/18 09:15 Losartan Potassium (Cozaar) 100 mg PO DAILY [facility] Meperidine HCl (Demerol) 12.5 mg IVPUSH ONETIME PRN PRN Reason: Shivering Meperidine HCl (Demerol) 25 mg IV ONETIME PRN PRN Reason: Shivering Metoclopramide HCl (Reglan) 10 mg IVPUSH ONETIME PRN PRN Reason: Nausea Metoprolol Succinate (Toprol Xl) 25 mg PO [facility] Last Admin: 05/25/18 11:41 Dose: Not Given Morphine Sulfate (Morphine) 4 mg IVPUSH Q10M PRN PRN Reason: Pain (severe 7-10) Stop: 05/26/18 09:15 Naloxone HCl (Narcan) 0.1 mg IVPUSH ONETIME PRN PRN Reason: Respiratory Depression Non-Formulary Medication (Losartan/Hydrochlorothiazide [Losartan-Hctz 100-12.5 Mg]) 1 tab PO DAILY [facility] Ondansetron HCl (Zofran) Confirm Administered Dose 8 mg .ROUTE .STK-MED ONE Stop: 05/25/18 08:29 Promethazine HCl (Phenergan) 12.5 mg IM ONETIME PRN PRN Reason: Nausea Propofol (Diprivan 20 Ml) Confirm Administered Dose 200 mg .ROUTE .STK-MED ONE Stop: 05/25/18 07:57 Propofol (Diprivan 20 Ml) Confirm Administered Dose 400 mg .ROUTE .STK-MED ONE Stop: 05/25/18 07:58 Propofol (Diprivan 20 Ml) Confirm Administered Dose 600 mg .ROUTE .STK-MED ONE Stop: 05/25/18 09:19 Scopolamine (Transderm-Scop) 1.5 mg TRDERM Q72H PRN PRN Reason: Nausea Tranexamic Acid (Cyklokapron) Confirm Administered Dose 2,000 mg .ROUTE .STK- MED ONE Stop: 05/25/18 07:34 - Exam General: Alert, Oriented, Cooperative, No Acute Distress Neck: Supple Lungs: Clear to Auscultation, Normal Respiratory Effort Cardiovascular: Regular Rate, Regular Rhythm GI/Abdominal Exam: Normal Bowel Sounds, Soft, Non-Tender Extremities: Normal Inspection, Normal Range of Motion, Non-Tender, No Pedal Edema Neurological: No New Focal Deficit Psy/Mental Status: Alert, Normal Affect, Normal Mood Consult PN Assessment/Plan Procedures: Procedures BLOOD TYPING SEROLOGIC ABO (07/03/15) BLOOD TYPING SEROLOGIC RH(D) (07/03/15) CT LUMBAR SPINE W/O DYE (08/27/17) DECALCIFY TISSUE (07/03/15) EMERGENCY DEPT VISIT (08/27/17) GAIT TRAINING THERAPY (07/03/15) HEMATOCRIT (07/03/15) HEMOGLOBIN (07/03/15) INSERT BLADDER CATH COMPLEX (07/03/15) MEDICAL NUTRITION INDIV IN (07/03/15) MRI JNT OF LWR EXTRE W/O DYE (04/09/18) OFFICE/OUTPATIENT VISIT EST (03/30/18) PT EVALUATION (07/03/15) RBC ANTIBODY SCREEN (07/03/15) ROUTINE VENIPUNCTURE (07/03/15) THER/PROPH/DIAG INJ SC/IM (08/27/17) THERAPEUTIC ACTIVITIES (07/03/15) THERAPEUTIC EXERCISES (07/03/15) TISSUE EXAM BY PATHOLOGIST (07/03/15) TISSUE EXAM BY PATHOLOGIST (09/22/14) URINALYSIS AUTO W/SCOPE (08/27/17) X-RAY EXAM KNEE 4 OR MORE (03/30/18) X-RAY EXAM OF KNEE 1 OR 2 (07/03/15) X-RAY EXAM OF KNEE 3 (06/27/16) (1) S/P total knee arthroplasty SNOMED Code(s): 1748974470283, 330424990, 1592463072054 Code(s): Z96.659 - PRESENCE OF UNSPECIFIED ARTIFICIAL KNEE JOINT Current Visit: Yes Qualifiers: Laterality: right Qualified Code(s): Z96.651 - Presence of right artificial knee joint (2) Bradycardia SNOMED Code(s): 98747945 Code(s): R00.1 - BRADYCARDIA, UNSPECIFIED Current Visit: Yes (3) HTN (hypertension) SNOMED Code(s): 23958370 Code(s): I10 - ESSENTIAL (PRIMARY) HYPERTENSION Current Visit: Yes Qualifiers: Hypertension type: essential hypertension Qualified Code(s): I10 - Essential (primary) hypertension (4) DM type 2 (diabetes mellitus, type 2) SNOMED Code(s): 34542877 Code(s): E11.9 - TYPE 2 DIABETES MELLITUS WITHOUT COMPLICATIONS Current Visit: Yes Qualifiers: Diabetes mellitus roasterman insulin use: without halfway use Diabetes mellitus complication status: without complication Qualified Code(s): E11.9 - Type 2 diabetes mellitus without complications (5) Hypothyroidism SNOMED Code(s): 63500261 Code(s): E03.9 - HYPOTHYROIDISM, UNSPECIFIED Current Visit: Yes Problem List Initiated/Reviewed/Updated: Yes My Orders Last 24 Hours: My Active Orders 05/25/18 11:30 Insulin Aspart [NovoLOG] See Protocol SUBCUT TIDAC 05/27/18 05:11 BMP [BASIC METABOLIC PANEL,BMP] [CHEM] AM Plan: This 72 year old female admitted with R TKA, Hospitalist service consulted for medical management with comorbidities 1. S/P R TKA: Orders per Orthopedics 2. Bradycardia: Continue to hold Metoprolol and monitor. She denies dizziness, lightheadedness or chest pain. Monitor on Telemetry. Follow up with PCP. 3. HTN: Stable, hold Losartan due to slight bump in Cr and BUN. 4. DM Type 2: BS Stable. Hold Metformin during hospital stay, cover with Novolog SSI. May resume Metformin upon discharge home. 5. Hypothyroidism: Stable. Continue Levothyroxine. VTE prophylaxis: Recommended when deemed appropriate by Orthopedics. ASA 325 mg ordered BID.
[2018-05-26] MEDS: Aspirin 325 MG Tab PO SCH ×2 (08:10→20:04)
[2018-05-26] MEDS: Famotidine 20 MG Tab PO SCH (08:10)
[2018-05-26] MEDS: Simvastatin 40 MG Tab PO SCH (08:10)
[2018-05-26] MEDS: Multivitamin Tab PO SCH (08:10)
[2018-05-26] MEDS: Levothyroxine 100 MCG Tab PO SCH (08:10)
[2018-05-26] MEDS: Polyethylene Glycol 3350 Powder 17 GM Packet PO SCH (08:11)
--- NOTE | 2018-05-26 08:56 | PCM.SURGPN ---
<Grecia Cornejo R - Last Filed: 05/26/18 08:47> - General Info Date of Service: 05/26/18 Date of Surgery/Procedure: 05/25/18 POD#: 1 Functional Status: Reports: Pain Controlled, Tolerating Diet, Ambulating - Review of Systems General: Reports: No Symptoms Cardiovascular: Reports: No Symptoms Gastrointestinal: Reports: No Symptoms Genitourinary: Reports: No Symptoms Systems Review Comment:: pt resting comfortably in bed now had difficulty controlling pain overnight no confusion/delirium with pain medication otherwise doing well no specific concerns today - Patient Data Vitals - Most Recent: Last Vital Signs Temp 97.8 F 05/26/18 07:00 Pulse 54 L 05/26/18 07:00 Resp 16 05/26/18 07:00 BP 130/57 L 05/26/18 07:00 Pulse Ox 93 L 05/26/18 07:00 Weight - Most Recent: 104.326 kg I&O - Last 24 Hours: Intake & Output 05/25/18 05/26/18 05/26/18 22:59 06:59 14:59 Intake Total 941 300 Output Total 300 850 Balance 641 -550 Lab Results Last 24 Hrs: Laboratory Results - last 24 hr 05/25/18 05/25/18 05/25/18 Range/Units 10:16 11:45 12:24 WBC 6.09 (4.0-11.0) K/uL RBC 4.31 (4.30-5.90) M/uL Hgb 13.5 (12.0-16.0) g/dL Hct 39.3 (36.0-46.0) % MCV 91.2 (80.0-98.0) fL MCH 31.3 (27.0-32.0) pg MCHC 34.4 (31.0-37.0) g/dL RDW Std Deviation 44.7 (28.0-62.0) fl RDW Coeff of [place] 14 (11.0-15.0) % Plt Count 153 (150-400) K/uL MPV 10.00 (7.40-12.00) fL Neut % (Auto) 79.0 (48.0-80.0) % Lymph % (Auto) 18.7 (16.0-40.0) % [place] % (Auto) 1.8 (0.0-15.0) % Eos % (Auto) 0.3 (0.0-7.0) % Baso % (Auto) 0.2 (0.0-1.5) % Neut # (Auto) 4.8 (1.4-5.7) K/uL Lymph # (Auto) 1.1 (0.6-2.4) K/uL [place] # (Auto) 0.1 (0.0-0.8) K/uL Eos # (Auto) 0.0 (0.0-0.7) K/uL Baso # (Auto) 0.0 (0.0-0.1) K/uL Nucleated RBC % 0.0 /100WBC Nucleated RBCs # 0 K/uL Sodium (136-145) mmol/L Potassium (3.5-5.1) mmol/L Chloride (98-107) mmol/L Carbon Dioxide (21.0-32.0) mmol/L BUN (7.0-18.0) mg/dL Creatinine (0.6-1.0) mg/dL Est Cr Clr Drug Dosing mL/min Estimated GFR (MDRD) ml/min Glucose (74-106) mg/dL POC Glucose 108 123 H (60-110) mg/dL Calcium (8.5-10.1) mg/dL 05/25/18 05/25/18 05/25/18 Range/Units 12:24 16:32 23:01 WBC (4.0-11.0) K/uL RBC (4.30-5.90) M/uL Hgb (12.0-16.0) g/dL Hct (36.0-46.0) % MCV (80.0-98.0) fL MCH (27.0-32.0) pg MCHC (31.0-37.0) g/dL RDW Std Deviation (28.0-62.0) fl RDW Coeff of [place] (11.0-15.0) % Plt Count (150-400) K/uL MPV (7.40-12.00) fL Neut % (Auto) (48.0-80.0) % Lymph % (Auto) (16.0-40.0) % [place] % (Auto) (0.0-15.0) % Eos % (Auto) (0.0-7.0) % Baso % (Auto) (0.0-1.5) % Neut # (Auto) (1.4-5.7) K/uL Lymph # (Auto) (0.6-2.4) K/uL [place] # (Auto) (0.0-0.8) K/uL Eos # (Auto) (0.0-0.7) K/uL Baso # (Auto) (0.0-0.1) K/uL Nucleated RBC % /100WBC Nucleated RBCs # K/uL Sodium 137 (136-145) mmol/L Potassium 4.2 (3.5-5.1) mmol/L Chloride 104 (98-107) mmol/L Carbon Dioxide 21.1 (21.0-32.0) mmol/L BUN 22 H (7.0-18.0) mg/dL Creatinine 1.4 H (0.6-1.0) mg/dL Est Cr Clr Drug Dosing 30.49 mL/min Estimated GFR (MDRD) 37.1 ml/min Glucose 181 H (74-106) mg/dL POC Glucose 157 H 338 H (60-110) mg/dL Calcium 8.5 (8.5-10.1) mg/dL 05/26/18 05/26/18 05/26/18 Range/Units 05:20 05:20 06:28 WBC (4.0-11.0) K/uL RBC (4.30-5.90) M/uL Hgb 12.4 (12.0-16.0) g/dL Hct 35.5 L (36.0-46.0) % MCV (80.0-98.0) fL MCH (27.0-32.0) pg MCHC (31.0-37.0) g/dL RDW Std Deviation (28.0-62.0) fl RDW Coeff of [place] (11.0-15.0) % Plt Count (150-400) K/uL MPV (7.40-12.00) fL Neut % (Auto) (48.0-80.0) % Lymph % (Auto) (16.0-40.0) % [place] % (Auto) (0.0-15.0) % Eos % (Auto) (0.0-7.0) % Baso % (Auto) (0.0-1.5) % Neut # (Auto) (1.4-5.7) K/uL Lymph # (Auto) (0.6-2.4) K/uL [place] # (Auto) (0.0-0.8) K/uL Eos # (Auto) (0.0-0.7) K/uL Baso # (Auto) (0.0-0.1) K/uL Nucleated RBC % /100WBC Nucleated RBCs # K/uL Sodium 135 L (136-145) mmol/L Potassium 4.5 (3.5-5.1) mmol/L Chloride 100 (98-107) mmol/L Carbon Dioxide 24.1 (21.0-32.0) mmol/L BUN 30 H (7.0-18.0) mg/dL Creatinine 1.4 H (0.6-1.0) mg/dL Est Cr Clr Drug Dosing 30.49 mL/min Estimated GFR (MDRD) 37.1 ml/min Glucose 182 H (74-106) mg/dL POC Glucose 165 H (60-110) mg/dL Calcium 8.4 L (8.5-10.1) mg/dL Med Orders - Current: Current Medications Acetaminophen (Tylenol Extra Strength) 1,000 mg PO Q6H [facility] Last Admin: 05/26/18 06:22 Dose: 1,000 mg Al Hydroxide/Mg Hydroxide (Mag-Al Plus) 30 ml PO Q4H PRN PRN Reason: Indigestion Aspirin (Aspirin) 325 mg PO BID [facility] Last Admin: 05/26/18 08:10 Dose: 325 mg Bisacodyl (Dulcolax) 10 mg RECTAL DAILY PRN PRN Reason: Constipation Citalopram Hydrobromide (Celexa) 40 mg PO ACLUNCH [facility] Last Admin: 05/25/18 11:39 Dose: 40 mg Diphenhydramine HCl (Benadryl) 25 - 50 mg PO Q6H PRN PRN Reason: Itching Docusate Sodium (Colace) 100 mg PO BID PRN PRN Reason: Constipation Famotidine (Pepcid) 40 mg IVPUSH ONARRIVE [facility] Last Admin: 05/25/18 07:33 Dose: 40 mg Famotidine (Pepcid) 40 mg PO DAILY [facility] Last Admin: 05/26/18 08:10 Dose: 40 mg Cefazolin Sodium/Dextrose 2 gm (/ Premix) 50 mls @ 100 mls/hr IV ONCALL [facility] Last Admin: 05/25/18 23:57 Dose: 100 mls/hr Lactated Ringer's (Ringers, Lactated) 1,000 mls @ 100 mls/hr IV ASDIRECTED [facility] Last Admin: 05/25/18 14:11 Dose: 100 mls/hr Insulin Aspart (Novolog) 0 unit SUBCUT TIDAC [facility]; Protocol Last Admin: 05/25/18 18:30 Dose: 1 unit Ketorolac Tromethamine (Toradol) 15 mg IVPUSH ONARRIVE [facility] Last Admin: 05/25/18 07:29 Dose: 15 mg Levothyroxine Sodium (Synthroid) 100 mcg PO DAILY [facility] Last Admin: 05/26/18 08:10 Dose: 100 mcg Morphine Sulfate (Morphine) 1 - 3 mg IVPUSH Q3H PRN PRN Reason: Pain Last Admin: 05/26/18 03:19 Dose: 3 mg Multivitamins/Minerals/Vitamin C (Tab-A-Edgar) 1 tab PO DAILY [facility] Last Admin: 05/26/18 08:10 Dose: 1 tab Ondansetron HCl (Zofran) 8 mg IVPUSH ONETIME PRN PRN Reason: Nausea Ondansetron HCl (Zofran) 4 mg IVPUSH Q6H PRN PRN Reason: Nausea/Vomiting Last Admin: 05/25/18 10:21 Dose: 4 mg Oxycodone HCl (Oxycodone) 5 mg PO Q4H PRN PRN Reason: Pain Last Admin: 05/26/18 08:11 Dose: 5 mg Polyethylene Glycol (Miralax) 17 gm PO DAILY [facility] Last Admin: 05/26/18 08:11 Dose: 17 gm Scopolamine (Transderm-Scop) 1.5 mg TRDERM ONARRIVE [facility] Last Admin: 05/25/18 07:37 Dose: 1.5 mg Simvastatin (Zocor) 40 mg PO DAILY [facility] Last Admin: 05/26/18 08:10 Dose: 40 mg Sodium Chloride (Saline Flush) 10 ml FLUSH ASDIRECTED PRN PRN Reason: Keep Vein Open Sodium Chloride (Saline Flush) 2.5 ml FLUSH ASDIRECTED PRN PRN Reason: Keep Vein Open Discontinued Medications Acetaminophen (Tylenol Extra Strength) 1,000 mg PO Q6H [facility] Hydrocodone Bitart/Acetaminophen ([place] 325-5 Mg) 2 tab PO Q6H PRN PRN Reason: Pain (moderate 4-6) Hydrocodone Bitart/Acetaminophen ([place] 325-5 Mg) 1 - 2 tab PO Q4H PRN PRN Reason: Pain (moderate 4-6) Albuterol (Proventil Neb Soln) 2.5 mg NEB Q6HRRT PRN PRN Reason: Wheezing Atropine Sulfate (Atropine 0.1 Mg/Ml) 0.4 mg IVPUSH Q5M PRN PRN Reason: Bradycardia Celecoxib (Celebrex) 200 mg PO BID [facility] Dexamethasone (Dexamethasone) Confirm Administered Dose 20 mg .ROUTE .K-MED ONE Stop: 05/25/18 08:29 Fentanyl (Sublimaze) 50 mcg IVPUSH Q5M PRN PRN Reason: Pain (severe 7-10) Stop: 05/26/18 09:15 Hydralazine HCl (Apresoline) 5 mg IVPUSH ONETIME PRN PRN Reason: Hypertension Hydralazine HCl (Apresoline) 10 mg IVPUSH ONETIME PRN PRN Reason: Hypertension Hydrochlorothiazide (Hydrochlorothiazide) 12.5 mg PO DAILY [facility] Hydromorphone HCl (Dilaudid) 0.25 mg IVPUSH Q10M PRN PRN Reason: Pain (severe 7-10) Stop: 05/26/18 09:15 Acetaminophen 1,000 mg/ Premix 100 mls @ 400 mls/hr IV ONARRIVE [facility] Last Admin: 05/25/18 07:33 Dose: 400 mls/hr Ropivacaine 49.25 ml/Ketorolac Tromethamine 30 mg/Epinephrine HCl 0.5 mg/ Clonidine HCl 80 mcg/ Sodium Chloride 75 mls @ 50 mls/sec INJECT ASDIRECTED [facility] Tranexamic Acid 2,000 mg/ (Sodium Chloride) 120 mls @ 600 mls/hr IV ASDIRECTED ONE Stop: 05/25/18 08:11 Last Admin: 05/25/18 10:34 Dose: Not Given Acetaminophen 1,000 mg/ Premix 100 mls @ 400 mls/hr IV Q6H [facility] Stop: 05/26/18 01:14 Last Admin: 05/26/18 01:20 Dose: 400 mls/hr Cefazolin Sodium/Dextrose 2 gm (/ Premix) 50 mls @ 100 mls/hr IV Q8H [facility] Stop: 05/26/18 00:29 Last Admin: 05/26/18 01:19 Dose: Not Given Ketamine HCl (Ketalar) Confirm Administered Dose 500 mg .ROUTE .STK-MED ONE Stop: 05/25/18 08:01 Ketorolac Tromethamine (Toradol) Confirm Administered Dose 30 mg .ROUTE .STK- MED ONE Stop: 05/25/18 08:00 Ketorolac Tromethamine (Toradol) 15 mg IVPUSH Q6H [facility] Stop: 05/26/18 05:00 Last Admin: 05/25/18 11:13 Dose: 15 mg Ketorolac Tromethamine (Toradol) 30 mg IVPUSH Q6H [facility] Stop: 05/26/18 07:00 Last Admin: 05/26/18 06:23 Dose: 30 mg Ketorolac Tromethamine (Toradol) 30 mg IVPUSH ONETIME ONE Stop: 05/25/18 22:31 Last Admin: 05/25/18 22:53 Dose: 30 mg Labetalol HCl (Normodyne) 10 mg IVPUSH Q6H PRN PRN Reason: Hypertension Stop: 05/26/18 09:15 Losartan Potassium (Cozaar) 100 mg PO DAILY [facility] Meperidine HCl (Demerol) 12.5 mg IVPUSH ONETIME PRN PRN Reason: Shivering Meperidine HCl (Demerol) 25 mg IV ONETIME PRN PRN Reason: Shivering Metoclopramide HCl (Reglan) 10 mg IVPUSH ONETIME PRN PRN Reason: Nausea Metoprolol Succinate (Toprol Xl) 25 mg [facility] Last Admin: 05/25/18 11:41 Dose: Not Given Morphine Sulfate (Morphine) 4 mg IVPUSH Q10M PRN PRN Reason: Pain (severe 7-10) Stop: 05/26/18 09:15 Naloxone HCl (Narcan) 0.1 mg IVPUSH ONETIME PRN PRN Reason: Respiratory Depression Non-Formulary Medication (Losartan/Hydrochlorothiazide [Losartan-Hctz 100-12.5 Mg]) 1 tab PO DAILY [facility] Ondansetron HCl (Zofran) Confirm Administered Dose 8 mg .ROUTE .STK-MED ONE Stop: 05/25/18 08:29 Promethazine HCl (Phenergan) 12.5 mg IM ONETIME PRN PRN Reason: Nausea Propofol (Diprivan 20 Ml) Confirm Administered Dose 200 mg .ROUTE .STK-MED ONE Stop: 05/25/18 07:57 Propofol (Diprivan 20 Ml) Confirm Administered Dose 400 mg .ROUTE .STK-MED ONE Stop: 05/25/18 07:58 Propofol (Diprivan 20 Ml) Confirm Administered Dose 600 mg .ROUTE .STK-MED ONE Stop: 05/25/18 09:19 Scopolamine (Transderm-Scop) 1.5 mg TRDERM Q72H PRN PRN Reason: Nausea Tranexamic Acid (Cyklokapron) Confirm Administered Dose 2,000 mg .ROUTE .STK- MED ONE Stop: 05/25/18 07:34 - Exam Wound/Incisions: No: Drainage, Erythema General: Alert, Oriented Cardiovascular: Regular Rate, Regular Rhythm Extremities: Other (exam RLE - incision c/d/i, no drainage, at/ehl/gastroc 5/5, dp 2+, sensation intact distally) Physical Findings Comment:: vss, afeb hgb 12.4 - Problem List Review Problem List Initiated/Reviewed/Updated: Yes - My Orders Last 24 Hours: Active Orders 24 hr Category Date Time Status Blood Glucose Check, Bedside [] TIDAC Care 05/25/18 09:15 Inactive Blood Glucose Check, Bedside [] TIDMEALS Care 05/25/18 16:41 Active Insert Urinary Catheter [OM.PC] Q24H Care 05/25/18 08:00 Ordered Neurovascular Check [] Q2HR Care 05/25/18 09:58 Active Notify Provider Consults [] ASDIRECTED Care 05/25/18 09:59 Active Notify Provider Vital Signs [] ASDIRECTED Care 05/25/18 09:58 Active RT Incentive Spirometry [RC] Q1HWA Care 05/25/18 09:58 Active Telemetry Monitoring [Cardiac Monitoring] [] Q8H Care 05/25/18 10:43 Active Wound Care [RC] DAILY Care 05/25/18 10:04 Active Consult to Physician [CONS] Routine Cons 05/25/18 09:58 Active PT Evaluation and Treatment [CONS] Routine Cons 05/25/18 09:58 Active BMP [BASIC METABOLIC PANEL,BMP] [CHEM] AM Lab 05/27/18 05:11 Ordered HEMOGLOBIN/HEMATOCRIT,HH [HEME] DAILY Lab 05/27/18 06:00 Ordered Acetaminophen [Tylenol Extra Strength] Med 05/26/18 07:00 Active 1,000 mg PO Q6H Alum Hydrox/Mag Hydrox/Simeth [Mag-Al Plus] Med 05/25/18 09:58 Active 30 ml PO Q4H PRN Aspirin Med 05/26/18 09:00 Active 325 mg PO BID Bisacodyl [Dulcolax] Med 05/25/18 09:58 Active 10 mg RECTAL DAILY PRN Citalopram [Celexa] Med 05/25/18 11:30 Active 40 mg PO ACLUNCH Docusate Sodium [Colace] Med 05/25/18 09:58 Active 100 mg PO BID PRN Famotidine [Pepcid] Med 05/26/18 09:00 Active 40 mg PO DAILY Insulin Aspart [NovoLOG] Med 05/25/18 11:30 Active See Protocol SUBCUT TIDAC Levothyroxine [Synthroid] Med 05/26/18 09:00 Active 100 mcg PO DAILY Morphine Med 05/25/18 10:09 Active 1 - 3 mg IVPUSH Q3H PRN Multivitamins [Tab-A-Edgar] Med 05/26/18 09:00 Active 1 tab PO DAILY Ondansetron [Zofran] Med 05/25/18 09:58 Active 4 mg IVPUSH Q6H PRN Ondansetron [Zofran] Med 05/25/18 09:15 Active 8 mg IVPUSH ONETIME PRN Polyethylene Glycol 3350 [MiraLAX] Med 05/26/18 09:00 Active 17 gm PO DAILY Simvastatin [Zocor] Med 05/26/18 09:00 Active 40 mg PO DAILY Sodium Chloride 0.9% [Saline Flush] Med 05/25/18 09:58 Active 10 ml FLUSH ASDIRECTED PRN Sodium Chloride 0.9% [Saline Flush] Med 05/25/18 09:58 Active 2.5 ml FLUSH ASDIRECTED PRN ceFAZolin [Ancef] 2 gm Med 05/25/18 08:00 Active Premix Bag 1 bag IV ONCALL diphenhydrAMINE [Benadryl] Med 05/25/18 09:58 Active 25 - 50 mg PO Q6H PRN oxyCODONE Med 05/25/18 22:32 Active 5 mg PO Q4H PRN Convert IV to Saline Lock [OM.PC] PRN Oth 05/26/18 06:00 Ordered Ice Therapy [OM.PC] Routine Oth 05/25/18 09:58 Ordered Medication Orders Acetaminophen (Tylenol Extra Strength) 1,000 mg PO Q6H [facility] Last Admin: 05/26/18 06:22 Dose: 1,000 mg Al Hydroxide/Mg Hydroxide (Mag-Al Plus) 30 ml PO Q4H PRN PRN Reason: Indigestion Aspirin (Aspirin) 325 mg PO BID [facility] Last Admin: 05/26/18 08:10 Dose: 325 mg Bisacodyl (Dulcolax) 10 mg RECTAL DAILY PRN PRN Reason: Constipation Citalopram Hydrobromide (Celexa) 40 mg PO ACLUNCH [facility] Last Admin: 05/25/18 11:39 Dose: 40 mg Diphenhydramine HCl (Benadryl) 25 - 50 mg PO Q6H PRN PRN Reason: Itching Docusate Sodium (Colace) 100 mg PO BID PRN PRN Reason: Constipation Famotidine (Pepcid) 40 mg IVPUSH ONARRIVE [facility] Last Admin: 05/25/18 07:33 Dose: 40 mg Famotidine (Pepcid) 40 mg PO DAILY [facility] Last Admin: 05/26/18 08:10 Dose: 40 mg Cefazolin Sodium/Dextrose 2 gm (/ Premix) 50 mls @ 100 mls/hr IV ONCALL [facility] Last Admin: 05/25/18 23:57 Dose: 100 mls/hr Lactated Ringer's (Ringers, Lactated) 1,000 mls @ 100 mls/hr IV ASDIRECTED [facility] Last Admin: 05/25/18 14:11 Dose: 100 mls/hr Infusion: 05/25/18 14:11 Dose: 100 mls/hr Admin: 05/25/18 07:20 Dose: 100 mls/hr Insulin Aspart (Novolog) 0 unit SUBCUT TIDAC [facility]; Protocol Last Admin: 05/25/18 18:30 Dose: 1 unit Admin: 05/25/18 11:46 Dose: Not Given Ketorolac Tromethamine (Toradol) 15 mg IVPUSH ONARRIVE [facility] Last Admin: 05/25/18 07:29 Dose: 15 mg Levothyroxine Sodium (Synthroid) 100 mcg PO DAILY [facility] Last Admin: 05/26/18 08:10 Dose: 100 mcg Morphine Sulfate (Morphine) 1 - 3 mg IVPUSH Q3H PRN PRN Reason: Pain Last Admin: 05/26/18 03:19 Dose: 3 mg Admin: 05/25/18 20:20 Dose: 3 mg Admin: 05/25/18 17:09 Dose: 1 mg Multivitamins/Minerals/Vitamin C (Tab-A-Edgar) 1 tab PO DAILY [facility] Last Admin: 05/26/18 08:10 Dose: 1 tab Ondansetron HCl (Zofran) 8 mg IVPUSH ONETIME PRN PRN Reason: Nausea Ondansetron HCl (Zofran) 4 mg IVPUSH Q6H PRN PRN Reason: Nausea/Vomiting Last Admin: 05/25/18 10:21 Dose: 4 mg Oxycodone HCl (Oxycodone) 5 mg PO Q4H PRN PRN Reason: Pain Last Admin: 05/26/18 08:11 Dose: 5 mg Admin: 05/26/18 04:38 Dose: 5 mg Admin: 05/25/18 22:54 Dose: 5 mg Polyethylene Glycol (Miralax) 17 gm PO DAILY [facility] Last Admin: 05/26/18 08:11 Dose: 17 gm Scopolamine (Transderm-Scop) 1.5 mg TRDERM ONARRIVE [facility] Last Admin: 05/25/18 07:37 Dose: 1.5 mg Simvastatin (Zocor) 40 mg PO DAILY [facility] Last Admin: 05/26/18 08:10 Dose: 40 mg Sodium Chloride (Saline Flush) 10 ml FLUSH ASDIRECTED PRN PRN Reason: Keep Vein Open Sodium Chloride (Saline Flush) 2.5 ml FLUSH ASDIRECTED PRN PRN Reason: Keep Vein Open - Assessment Assessment (Free Text/Narrative):: POD#1 R TKA acute posthemorrhagic anemia - Plan Plan (Free Text/Narrative):: DC IV fluids - saline lock IV DC rojas DC [employer] - morphine IV prn breakthrough pain DC oxycodone - percocet 5/325 prn available ASA 325mg PO BID as DVT prophylaxis dressing changed to aquacel PT today pt has wheeled walker or script has been written anticipate up to 72 hour stay for IV pain medication and continued physical therapy pt will require FWW for safe mobility/stability until increased strength/gait independence s/p TKA - has been safely mobilizing in room with FWW. d/ch medications written Pt will require homecare for PT and residential/wound care s/p R TKA, unable to drive minimum 4 weeks s/p R TKA. Will need PT for ROM, stretching, strengthening, mobilization, stabilization, gait training/independence, home program. [facility] for wound care and dressing changes. Anticipate services required for 4-6 weeks <Susan Aldana R - Last Filed: 05/27/18 14:09> - Patient Data Vitals - Most Recent: Last Vital Signs Temp 97.5 F 05/27/18 09:00 Pulse 51 L 05/27/18 09:00 Resp 16 05/27/18 09:00 BP 116/54 L 05/27/18 09:00 Pulse Ox 98 05/27/18 09:00 I&O - Last 24 Hours: Intake & Output 05/26/18 05/27/18 05/27/18 22:59 06:59 14:59 Intake Total 550 650 Output Total 450 Balance 100 650 Lab Results Last 24 Hrs: Laboratory Results - last 24 hr 05/26/18 05/26/18 05/27/18 Range/Units 16:42 18:26 05:20 Hgb 11.8 L (12.0-16.0) g/dL Hct 34.9 L (36.0-46.0) % Sodium (136-145) mmol/L Potassium (3.5-5.1) mmol/L Chloride (98-107) mmol/L Carbon Dioxide (21.0-32.0) mmol/L BUN (7.0-18.0) mg/dL Creatinine (0.6-1.0) mg/dL Est Cr Clr Drug Dosing mL/min Estimated GFR (MDRD) ml/min Glucose (74-106) mg/dL POC Glucose 69 273 H (60-110) mg/dL Calcium (8.5-10.1) mg/dL 05/27/18 05/27/18 Range/Units 05:20 05:50 Hgb (12.0-16.0) g/dL Hct (36.0-46.0) % Sodium 139 (136-145) mmol/L Potassium 4.8 (3.5-5.1) mmol/L Chloride 104 (98-107) mmol/L Carbon Dioxide 26.9 (21.0-32.0) mmol/L BUN 32 H (7.0-18.0) mg/dL Creatinine 1.2 H (0.6-1.0) mg/dL Est Cr Clr Drug Dosing 35.57 mL/min Estimated GFR (MDRD) 44.3 ml/min Glucose 110 H (74-106) mg/dL POC Glucose 91 (60-110) mg/dL Calcium 8.5 (8.5-10.1) mg/dL Med Orders - Current: Current Medications Discontinued Medications Acetaminophen (Tylenol Extra Strength) 1,000 mg PO Q6H [facility] Acetaminophen (Tylenol Extra Strength) 1,000 mg PO Q6H [facility] Last Admin: 05/27/18 07:50 Dose: 1,000 mg Hydrocodone Bitart/Acetaminophen ([place] 325-5 Mg) 2 tab PO Q6H PRN PRN Reason: Pain (moderate 4-6) Hydrocodone Bitart/Acetaminophen ([place] 325-5 Mg) 1 - 2 tab PO Q4H PRN PRN Reason: Pain (moderate 4-6) Al Hydroxide/Mg Hydroxide (Mag-Al Plus) 30 ml PO Q4H PRN PRN Reason: Indigestion Albuterol (Proventil Neb Soln) 2.5 mg NEB Q6HRRT PRN PRN Reason: Wheezing Aspirin (Aspirin) 325 mg PO BID [facility] Last Admin: 05/27/18 09:13 Dose: 325 mg Atropine Sulfate (Atropine 0.1 Mg/Ml) 0.4 mg IVPUSH Q5M PRN PRN Reason: Bradycardia Bisacodyl (Dulcolax) 10 mg RECTAL DAILY PRN PRN Reason: Constipation Celecoxib (Celebrex) 200 mg PO BID [facility] Citalopram Hydrobromide (Celexa) 40 mg PO ACLUNCH [facility] Last Admin: 05/26/18 12:00 Dose: 40 mg Dexamethasone (Dexamethasone) Confirm Administered Dose 20 mg .ROUTE .STK-MED ONE Stop: 05/25/18 08:29 Diphenhydramine HCl (Benadryl) 25 - 50 mg PO Q6H PRN PRN Reason: Itching Docusate Sodium (Colace) 100 mg PO BID PRN PRN Reason: Constipation Famotidine (Pepcid) 40 mg IVPUSH ONARRIVE [facility] Last Admin: 05/25/18 07:33 Dose: 40 mg Famotidine (Pepcid) 40 mg PO DAILY [facility] Last Admin: 05/27/18 09:14 Dose: 40 mg Fentanyl (Sublimaze) 50 mcg IVPUSH Q5M PRN PRN Reason: Pain (severe 7-10) Stop: 05/26/18 09:15 Hydralazine HCl (Apresoline) 5 mg IVPUSH ONETIME PRN PRN Reason: Hypertension Hydralazine HCl (Apresoline) 10 mg IVPUSH ONETIME PRN PRN Reason: Hypertension Hydrochlorothiazide (Hydrochlorothiazide) 12.5 mg PO DAILY [facility] Hydromorphone HCl (Dilaudid) 0.25 mg IVPUSH Q10M PRN PRN Reason: Pain (severe 7-10) Stop: 05/26/18 09:15 Acetaminophen 1,000 mg/ Premix 100 mls @ 400 mls/hr IV ONARRIVE [facility] Last Admin: 05/25/18 07:33 Dose: 400 mls/hr Cefazolin Sodium/Dextrose 2 gm (/ Premix) 50 mls @ 100 mls/hr IV ONCALL [facility] Last Admin: 05/25/18 23:57 Dose: 100 mls/hr Ropivacaine 49.25 ml/Ketorolac Tromethamine 30 mg/Epinephrine HCl 0.5 mg/ Clonidine HCl 80 mcg/ Sodium Chloride 75 mls @ 50 mls/sec INJECT ASDIRECTED [facility] Lactated Ringer's (Ringers, Lactated) 1,000 mls @ 100 mls/hr IV ASDIRECTED [facility] Last Admin: 05/25/18 14:11 Dose: 100 mls/hr Tranexamic Acid 2,000 mg/ (Sodium Chloride) 120 mls @ 600 mls/hr IV ASDIRECTED ONE Stop: 05/25/18 08:11 Last Admin: 05/25/18 10:34 Dose: Not Given Acetaminophen 1,000 mg/ Premix 100 mls @ 400 mls/hr IV Q6H [facility] Stop: 05/26/18 01:14 Last Admin: 05/26/18 01:20 Dose: 400 mls/hr Cefazolin Sodium/Dextrose 2 gm (/ Premix) 50 mls @ 100 mls/hr IV Q8H [facility] Stop: 05/26/18 00:29 Last Admin: 05/26/18 01:19 Dose: Not Given Insulin Aspart (Novolog) 0 unit SUBCUT TIDAC [facility]; Protocol Last Admin: 05/27/18 06:39 Dose: Not Given Ketamine HCl (Ketalar) Confirm Administered Dose 500 mg .ROUTE .STK-MED ONE Stop: 05/25/18 08:01 Ketorolac Tromethamine (Toradol) 15 mg IVPUSH ONARRIVE [facility] Last Admin: 05/25/18 07:29 Dose: 15 mg Ketorolac Tromethamine (Toradol) Confirm Administered Dose 30 mg .ROUTE .STK- MED ONE Stop: 05/25/18 08:00 Ketorolac Tromethamine (Toradol) 15 mg IVPUSH Q6H [facility] Stop: 05/26/18 05:00 Last Admin: 05/25/18 11:13 Dose: 15 mg Ketorolac Tromethamine (Toradol) 30 mg IVPUSH Q6H [facility] Stop: 05/26/18 07:00 Last Admin: 05/26/18 06:23 Dose: 30 mg Ketorolac Tromethamine (Toradol) 30 mg IVPUSH ONETIME ONE Stop: 05/25/18 22:31 Last Admin: 05/25/18 22:53 Dose: 30 mg Labetalol HCl (Normodyne) 10 mg IVPUSH Q6H PRN PRN Reason: Hypertension Stop: 05/26/18 09:15 Levothyroxine Sodium (Synthroid) 100 mcg PO DAILY [facility] Last Admin: 05/27/18 09:14 Dose: 100 mcg Levothyroxine Sodium (Synthroid) 100 mcg PO ACBREAKFAST [facility] Losartan Potassium (Cozaar) 100 mg PO DAILY [facility] Meperidine HCl (Demerol) 12.5 mg IVPUSH ONETIME PRN PRN Reason: Shivering Meperidine HCl (Demerol) 25 mg IV ONETIME PRN PRN Reason: Shivering Metoclopramide HCl (Reglan) 10 mg IVPUSH ONETIME PRN PRN Reason: Nausea Metoprolol Succinate (Toprol Xl) 25 mg PO ACLUNCH [facility] Last Admin: 05/25/18 11:41 Dose: Not Given Morphine Sulfate (Morphine) 4 mg IVPUSH Q10M PRN PRN Reason: Pain (severe 7-10) Stop: 05/26/18 09:15 Morphine Sulfate (Morphine) 1 - 3 mg IVPUSH Q3H PRN PRN Reason: Pain Last Admin: 05/27/18 03:42 Dose: 2 mg Multivitamins/Minerals/Vitamin C (Tab-A-Edgar) 1 tab PO DAILY [facility] Last Admin: 05/27/18 09:14 Dose: 1 tab Naloxone HCl (Narcan) 0.1 mg IVPUSH ONETIME PRN PRN Reason: Respiratory Depression Non-Formulary Medication (Losartan/Hydrochlorothiazide [Losartan-Hctz 100-12.5 Mg]) 1 tab PO DAILY [facility] Ondansetron HCl (Zofran) Confirm Administered Dose 8 mg .ROUTE .STK-MED ONE Stop: 05/25/18 08:29 Ondansetron HCl (Zofran) 8 mg IVPUSH ONETIME PRN PRN Reason: Nausea Ondansetron HCl (Zofran) 4 mg IVPUSH Q6H PRN PRN Reason: Nausea/Vomiting Last Admin: 05/25/18 10:21 Dose: 4 mg Oxycodone HCl (Oxycodone) 5 mg PO Q4H PRN PRN Reason: Pain Last Admin: 05/27/18 09:14 Dose: 5 mg Polyethylene Glycol (Miralax) 17 gm PO DAILY [facility] Last Admin: 05/27/18 09:13 Dose: 17 gm Promethazine HCl (Phenergan) 12.5 mg IM ONETIME PRN PRN Reason: Nausea Propofol (Diprivan 20 Ml) Confirm Administered Dose 200 mg .ROUTE .STK-MED ONE Stop: 05/25/18 07:57 Propofol (Diprivan 20 Ml) Confirm Administered Dose 400 mg .ROUTE .STK-MED ONE Stop: 05/25/18 07:58 Propofol (Diprivan 20 Ml) Confirm Administered Dose 600 mg .ROUTE .STK-MED ONE Stop: 05/25/18 09:19 Scopolamine (Transderm-Scop) 1.5 mg TRDERM ONARRIVE [facility] Last Admin: 05/25/18 07:37 Dose: 1.5 mg Scopolamine (Transderm-Scop) 1.5 mg TRDERM Q72H PRN PRN Reason: Nausea Simvastatin (Zocor) 40 mg PO DAILY [facility] Last Admin: 05/27/18 09:14 Dose: 40 mg Sodium Chloride (Saline Flush) 10 ml FLUSH ASDIRECTED PRN PRN Reason: Keep Vein Open Sodium Chloride (Saline Flush) 2.5 ml FLUSH ASDIRECTED PRN PRN Reason: Keep Vein Open Tranexamic Acid (Cyklokapron) Confirm Administered Dose 2,000 mg .ROUTE .STK- MED ONE Stop: 05/25/18 07:34 - My Orders Last 24 Hours: Active Orders 24 hr Category Date Time Status Discontinue Telemetry Monitoring [Cardiac Monitoring Care 05/27/18 09:30 Active Discontinue] [RC] Click to Edit Ready for Discharge [RC] PER UNIT ROUTINE Care 05/27/18 08:05 Active - Plan Plan (Free Text/Narrative):: Late entry Patient was seen and evaluated at 0830 on 05/26/18. She was sitting up in chair for breakfast. States pain has been well controlled. Was ambulating in [place] earlier today. No other complaints. Will plan to keep for pain management and PT. Possible discharge home tomorrow. [email or web address]
[2018-05-26] MEDS ORDERED: Losartan 50 MG Tab PO SCH (09:00)
[2018-05-26] MEDS ORDERED: Hydrochlorothiazide 12.5 MG Cap PO SCH (09:00)
[2018-05-26] MEDS ORDERED: Celecoxib 100 MG Cap PO SCH (09:00)
[2018-05-26] MEDS: Insulin Aspart 100 Units/ML 3 ML Pen SUBCUT SCH ×3 (09:20→18:36)
[2018-05-26] MEDS: Citalopram 20 MG Tab PO SCH (12:00)
--- NOTE | 2018-05-26 15:20 | PCM48HPAN ---
Post Anesthesia Note - EVALUATION WITHIN 48HRS OF ANESTHETIC Vital Signs in Normal Range: Yes Patient Participated in Evaluation: Yes Respiratory Function Stable: Yes Airway Patent: Yes Cardiovascular Function Stable: Yes Hydration Status Stable: Yes Pain Control Satisfactory: Yes Nausea and Vomiting Control Satisfactory: Yes Mental Status Recovered: Yes Pulse Rate: 44 Resp Rate: 16 Blood Pressure: 113/54
[2018-05-27] MEDS: Acetaminophen 500 MG Tab PO SCH ×2 (00:11→07:50)
[2018-05-27] MEDS: oxyCODONE 5 MG Tab PO PRN ×3 (00:11→09:14)
[2018-05-27] MEDS: Morphine 2 MG/ML Syringe IVPUSH PRN (03:42)
[2018-05-27] MEDS: Insulin Aspart 100 Units/ML 3 ML Pen SUBCUT SCH (06:39)
[2018-05-27] MEDS: Aspirin 325 MG Tab PO SCH (09:13)
[2018-05-27] MEDS: Polyethylene Glycol 3350 Powder 17 GM Packet PO SCH (09:13)
[2018-05-27] MEDS: Simvastatin 40 MG Tab PO SCH (09:14)
[2018-05-27] MEDS: Levothyroxine 100 MCG Tab PO SCH (09:14)
[2018-05-27] MEDS: Famotidine 20 MG Tab PO SCH (09:14)
[2018-05-27] MEDS: Multivitamin Tab PO SCH (09:14)
[2018-05-27 10:47] VITALS: BP 116/54
--- NOTE | 2018-05-27 13:53 | PCM.SURGPN ---
- General Info Date of Service: 05/27/18 Date of Surgery/Procedure: 05/25/18 POD#: 2 Functional Status: Reports: Pain Controlled, Tolerating Diet, Ambulating, Urinating - Review of Systems General: Reports: No Symptoms Systems Review Comment:: pt resting comfortably in bed fairly good pain control with oxycodone 5 - feels it could be improved with 2 tabs as compared to 1 no delirium, no confusion would like to go home today home health was consulted yesterday and documented regarding need - Patient Data Vitals - Most Recent: Last Vital Signs Temp 97.5 F 05/27/18 09:00 Pulse 51 L 05/27/18 09:00 Resp 16 05/27/18 09:00 BP 116/54 L 05/27/18 09:00 Pulse Ox 98 05/27/18 09:00 Weight - Most Recent: 104.326 kg I&O - Last 24 Hours: Intake & Output 05/26/18 05/27/18 05/27/18 22:59 06:59 14:59 Intake Total 550 650 Output Total 450 Balance 100 650 Lab Results Last 24 Hrs: Laboratory Results - last 24 hr 05/26/18 05/26/18 05/27/18 Range/Units 16:42 18:26 05:20 Hgb 11.8 L (12.0-16.0) g/dL Hct 34.9 L (36.0-46.0) % Sodium (136-145) mmol/L Potassium (3.5-5.1) mmol/L Chloride (98-107) mmol/L Carbon Dioxide (21.0-32.0) mmol/L BUN (7.0-18.0) mg/dL Creatinine (0.6-1.0) mg/dL Est Cr Clr Drug Dosing mL/min Estimated GFR (MDRD) ml/min Glucose (74-106) mg/dL POC Glucose 69 273 H (60-110) mg/dL Calcium (8.5-10.1) mg/dL 05/27/18 05/27/18 Range/Units 05:20 05:50 Hgb (12.0-16.0) g/dL Hct (36.0-46.0) % Sodium 139 (136-145) mmol/L Potassium 4.8 (3.5-5.1) mmol/L Chloride 104 (98-107) mmol/L Carbon Dioxide 26.9 (21.0-32.0) mmol/L BUN 32 H (7.0-18.0) mg/dL Creatinine 1.2 H (0.6-1.0) mg/dL Est Cr Clr Drug Dosing 35.57 mL/min Estimated GFR (MDRD) 44.3 ml/min Glucose 110 H (74-106) mg/dL POC Glucose 91 (60-110) mg/dL Calcium 8.5 (8.5-10.1) mg/dL Med Orders - Current: Current Medications Discontinued Medications Acetaminophen (Tylenol Extra Strength) 1,000 mg PO Q6H [facility] Acetaminophen (Tylenol Extra Strength) 1,000 mg PO Q6H [facility] Last Admin: 05/27/18 07:50 Dose: 1,000 mg Hydrocodone Bitart/Acetaminophen ([place] 325-5 Mg) 2 tab PO Q6H PRN PRN Reason: Pain (moderate 4-6) Hydrocodone Bitart/Acetaminophen ([place] 325-5 Mg) 1 - 2 tab PO Q4H PRN PRN Reason: Pain (moderate 4-6) Al Hydroxide/Mg Hydroxide (Mag-Al Plus) 30 ml PO Q4H PRN PRN Reason: Indigestion Albuterol (Proventil Neb Soln) 2.5 mg NEB Q6HRRT PRN PRN Reason: Wheezing Aspirin (Aspirin) 325 mg PO BID [facility] Last Admin: 05/27/18 09:13 Dose: 325 mg Atropine Sulfate (Atropine 0.1 Mg/Ml) 0.4 mg IVPUSH Q5M PRN PRN Reason: Bradycardia Bisacodyl (Dulcolax) 10 mg RECTAL DAILY PRN PRN Reason: Constipation Celecoxib (Celebrex) 200 mg PO BID [facility] Citalopram Hydrobromide (Celexa) 40 mg PO ACLUNCH [facility] Last Admin: 05/26/18 12:00 Dose: 40 mg Dexamethasone (Dexamethasone) Confirm Administered Dose 20 mg .ROUTE .STK-MED ONE Stop: 05/25/18 08:29 Diphenhydramine HCl (Benadryl) 25 - 50 mg PO Q6H PRN PRN Reason: Itching Docusate Sodium (Colace) 100 mg PO BID PRN PRN Reason: Constipation Famotidine (Pepcid) 40 mg IVPUSH ONARRIVE [facility] Last Admin: 05/25/18 07:33 Dose: 40 mg Famotidine (Pepcid) 40 mg PO DAILY [facility] Last Admin: 05/27/18 09:14 Dose: 40 mg Fentanyl (Sublimaze) 50 mcg IVPUSH Q5M PRN PRN Reason: Pain (severe 7-10) Stop: 05/26/18 09:15 Hydralazine HCl (Apresoline) 5 mg IVPUSH ONETIME PRN PRN Reason: Hypertension Hydralazine HCl (Apresoline) 10 mg IVPUSH ONETIME PRN PRN Reason: Hypertension Hydrochlorothiazide (Hydrochlorothiazide) 12.5 mg PO DAILY [facility] Hydromorphone HCl (Dilaudid) 0.25 mg IVPUSH Q10M PRN PRN Reason: Pain (severe 7-10) Stop: 05/26/18 09:15 Acetaminophen 1,000 mg/ Premix 100 mls @ 400 mls/hr IV ONARRIVE [facility] Last Admin: 05/25/18 07:33 Dose: 400 mls/hr Cefazolin Sodium/Dextrose 2 gm (/ Premix) 50 mls @ 100 mls/hr IV ONCALL [facility] Last Admin: 05/25/18 23:57 Dose: 100 mls/hr Ropivacaine 49.25 ml/Ketorolac Tromethamine 30 mg/Epinephrine HCl 0.5 mg/ Clonidine HCl 80 mcg/ Sodium Chloride 75 mls @ 50 mls/sec INJECT ASDIRECTED [facility] Lactated Ringer's (Ringers, Lactated) 1,000 mls @ 100 mls/hr IV ASDIRECTED [facility] Last Admin: 05/25/18 14:11 Dose: 100 mls/hr Tranexamic Acid 2,000 mg/ (Sodium Chloride) 120 mls @ 600 mls/hr IV ASDIRECTED ONE Stop: 05/25/18 08:11 Last Admin: 05/25/18 10:34 Dose: Not Given Acetaminophen 1,000 mg/ Premix 100 mls @ 400 mls/hr IV Q6H [facility] Stop: 05/26/18 01:14 Last Admin: 05/26/18 01:20 Dose: 400 mls/hr Cefazolin Sodium/Dextrose 2 gm (/ Premix) 50 mls @ 100 mls/hr IV Q8H [facility] Stop: 05/26/18 00:29 Last Admin: 05/26/18 01:19 Dose: Not Given Insulin Aspart (Novolog) 0 unit SUBCUT TIDAC [facility]; Protocol Last Admin: 05/27/18 06:39 Dose: Not Given Ketamine HCl (Ketalar) Confirm Administered Dose 500 mg .ROUTE .STK-MED ONE Stop: 05/25/18 08:01 Ketorolac Tromethamine (Toradol) 15 mg IVPUSH ONARRIVE [facility] Last Admin: 05/25/18 07:29 Dose: 15 mg Ketorolac Tromethamine (Toradol) Confirm Administered Dose 30 mg .ROUTE .STK- MED ONE Stop: 05/25/18 08:00 Ketorolac Tromethamine (Toradol) 15 mg IVPUSH Q6H [facility] Stop: 05/26/18 05:00 Last Admin: 05/25/18 11:13 Dose: 15 mg Ketorolac Tromethamine (Toradol) 30 mg IVPUSH Q6H [facility] Stop: 05/26/18 07:00 Last Admin: 05/26/18 06:23 Dose: 30 mg Ketorolac Tromethamine (Toradol) 30 mg IVPUSH ONETIME ONE Stop: 05/25/18 22:31 Last Admin: 05/25/18 22:53 Dose: 30 mg Labetalol HCl (Normodyne) 10 mg IVPUSH Q6H PRN PRN Reason: Hypertension Stop: 05/26/18 09:15 Levothyroxine Sodium (Synthroid) 100 mcg PO DAILY [facility] Last Admin: 05/27/18 09:14 Dose: 100 mcg Levothyroxine Sodium (Synthroid) 100 mcg PO ACBREAKFAST [facility] Losartan Potassium (Cozaar) 100 mg PO DAILY [facility] Meperidine HCl (Demerol) 12.5 mg IVPUSH ONETIME PRN PRN Reason: Shivering Meperidine HCl (Demerol) 25 mg IV ONETIME PRN PRN Reason: Shivering Metoclopramide HCl (Reglan) 10 mg IVPUSH ONETIME PRN PRN Reason: Nausea Metoprolol Succinate (Toprol Xl) 25 mg PO ACLUNCH [facility] Last Admin: 05/25/18 11:41 Dose: Not Given Morphine Sulfate (Morphine) 4 mg IVPUSH Q10M PRN PRN Reason: Pain (severe 7-10) Stop: 05/26/18 09:15 Morphine Sulfate (Morphine) 1 - 3 mg IVPUSH Q3H PRN PRN Reason: Pain Last Admin: 05/27/18 03:42 Dose: 2 mg Multivitamins/Minerals/Vitamin C (Tab-A-Edgar) 1 tab PO DAILY [facility] Last Admin: 05/27/18 09:14 Dose: 1 tab Naloxone HCl (Narcan) 0.1 mg IVPUSH ONETIME PRN PRN Reason: Respiratory Depression Non-Formulary Medication (Losartan/Hydrochlorothiazide [Losartan-Hctz 100-12.5 Mg]) 1 tab PO DAILY [facility] Ondansetron HCl (Zofran) Confirm Administered Dose 8 mg .ROUTE .STK-MED ONE Stop: 05/25/18 08:29 Ondansetron HCl (Zofran) 8 mg IVPUSH ONETIME PRN PRN Reason: Nausea Ondansetron HCl (Zofran) 4 mg IVPUSH Q6H PRN PRN Reason: Nausea/Vomiting Last Admin: 05/25/18 10:21 Dose: 4 mg Oxycodone HCl (Oxycodone) 5 mg PO Q4H PRN PRN Reason: Pain Last Admin: 05/27/18 09:14 Dose: 5 mg Polyethylene Glycol (Miralax) 17 gm PO DAILY [facility] Last Admin: 05/27/18 09:13 Dose: 17 gm Promethazine HCl (Phenergan) 12.5 mg IM ONETIME PRN PRN Reason: Nausea Propofol (Diprivan 20 Ml) Confirm Administered Dose 200 mg .ROUTE .STK-MED ONE Stop: 05/25/18 07:57 Propofol (Diprivan 20 Ml) Confirm Administered Dose 400 mg .ROUTE .STK-MED ONE Stop: 05/25/18 07:58 Propofol (Diprivan 20 Ml) Confirm Administered Dose 600 mg .ROUTE .STK-MED ONE Stop: 05/25/18 09:19 Scopolamine (Transderm-Scop) 1.5 mg TRDERM ONARRIVE [facility] Last Admin: 05/25/18 07:37 Dose: 1.5 mg Scopolamine (Transderm-Scop) 1.5 mg TRDERM Q72H PRN PRN Reason: Nausea Simvastatin (Zocor) 40 mg PO DAILY [facility] Last Admin: 05/27/18 09:14 Dose: 40 mg Sodium Chloride (Saline Flush) 10 ml FLUSH ASDIRECTED PRN PRN Reason: Keep Vein Open Sodium Chloride (Saline Flush) 2.5 ml FLUSH ASDIRECTED PRN PRN Reason: Keep Vein Open Tranexamic Acid (Cyklokapron) Confirm Administered Dose 2,000 mg .ROUTE .STK- MED ONE Stop: 05/25/18 07:34 - Exam Wound/Incisions: Dressing Dry and Intact General: Alert, Oriented Cardiovascular: Regular Rate, Regular Rhythm Physical Findings Comment:: vss, afeb hgb 11.8 - Problem List & Annotations (1) S/P total knee arthroplasty SNOMED Code(s): 6491752852872, 126881997, 7168090271663 Code(s): Z96.659 - PRESENCE OF UNSPECIFIED ARTIFICIAL KNEE JOINT Status: Acute Qualifiers: Laterality: right Qualified Code(s): Z96.651 - Presence of right artificial knee joint - Problem List Review Problem List Initiated/Reviewed/Updated: Yes - My Orders Last 24 Hours: Active Orders 24 hr Category Date Time Status Discontinue Telemetry Monitoring [Cardiac Monitoring Care 05/27/18 09:30 Active Discontinue] [RC] Click to Edit Ready for Discharge [RC] PER UNIT ROUTINE Care 05/27/18 08:05 Active - Assessment Assessment (Free Text/Narrative):: POD#2 R TKA acute posthemorrhagic anemia - Plan Plan (Free Text/Narrative):: d/ch to home d/ch meds written home health consulted for home care PT/nursing d/ch summary #[id number]
--- NOTE | 2018-05-27 16:34 | DISCH ---
DATE OF DISCHARGE: 05/27/2018 PRIMARY CARE PHYSICIAN: Daniela Vences DO ADMITTING DIAGNOSES: Degenerative joint disease, right knee, tricompartmental. OTHER MEDICAL DIAGNOSES: 1. Hypertension. 2. Hypercholesterolemia. 3. Hypothyroidism. 4. Type 2 diabetes. DISCHARGE DIAGNOSES: 1. Degenerative joint disease, right knee, tricompartmental. 2. Hypertension. 3. Hypercholesterolemia. 4. Hypothyroidism. 5. Type 2 diabetes. 6. Acute post hemorrhagic anemia. BRIEF HISTORY: Mariaelena is a 72-year-old female who has had progressive complaints of right knee pain. She has tried and failed conservative treatment. At that time, surgical treatment was recommended. On May 25, 2017, the patient underwent a right total knee arthroplasty using standard instrumentation, done by Dr. Susan Aldana. There was done under spinal anesthesia with sedation. Estimated blood loss was 50 milliliters. Tourniquet time was 43 minutes. There were no complications. Upon completion of the procedure, the patient was transferred to the PACU and subsequently to Med/Surg for postoperative care. HOSPITAL COURSE: Postoperatively, the patient did well. She received two doses of antibiotics postoperatively for a total of 24 hours of antibiotic coverage. The Hospitalist Service and Physical Therapy followed her through her hospital stay. 325 mg of aspirin was started on postoperative day #1 as DVT prophylaxis. She has been ambulating with a wheeled walker. Her pain has been well controlled with oral pain medications. Her vital signs have been stable. She has been afebrile. Her hemoglobin on the morning of May 27 was 11.8. Her pain is controlled with oral pain medications only at this time. She feels comfortable with discharge to home. DISCHARGE MEDICATIONS: 1. Oxycodone 5 mg. 2. Tylenol Extra Strength 500 mg. 3. Colace 100 mg. 4. MiraLax. 5. Aspirin 325 mg. For complete discharge instructions, please refer back to Dr. Aldana's postoperative total knee arthroplasty patient instructions. For complete medication reconciliation and discharge instructions, please refer back to the patient's EHR. Should she have questions or concerns prior to followup, she has been advised to contact the clinic. SLIM [place] /[id number]
[2018-05-28] MEDS ORDERED: Levothyroxine 100 MCG Tab PO SCH (07:30)
== END 2018-05-27 10:30 | disposition home health service (06) | DRG 470 ==
LOC: MW.SDS 06:23 → MW.MS 10:11
PROVIDERS: ADMIT Orthopaedic Surgery; ATTEND Orthopaedic Surgery
PROC: 0SRC0J9 Replacement of Right Knee Joint with Synthetic Substitute, Cemented, Open Approach (ICD-10-PCS; principal; 2018-05-25)
DX: M17.11 Unilateral primary osteoarthritis, right knee (principal); Z68.41 Body mass index [BMI] 40.0-44.9, adult; D62 Acute posthemorrhagic anemia; M25.761 Osteophyte, right knee; M94.261 Chondromalacia, right knee; R00.1 Bradycardia, unspecified; F32.9 Major depressive disorder, single episode, unspecified; E78.00 Pure hypercholesterolemia, unspecified; E03.9 Hypothyroidism, unspecified; E11.22 Type 2 diabetes mellitus with diabetic chronic kidney disease; I12.9 Hypertensive chronic kidney disease with stage 1 through stage 4 chronic kidney disease, or unspecified chronic kidney disease; N18.3 Chronic kidney disease, stage 3 (moderate); G47.33 Obstructive sleep apnea (adult) (pediatric); E66.9 Obesity, unspecified; Z79.890 Hormone replacement therapy; Z22.322 Carrier or suspected carrier of Methicillin resistant Staphylococcus aureus; Z79.84 Long term (current) use of oral hypoglycemic drugs; Z79.82 Long term (current) use of aspirin; Z85.828 Personal history of other malignant neoplasm of skin; Z88.8 Allergy status to other drugs, medicaments and biological substances; Z86.718 Personal history of other venous thrombosis and embolism; Z87.891 Personal history of nicotine dependence; Z79.899 Other long term (current) drug therapy; Z96.652 Presence of left artificial knee joint
CPT/HCPCS: 27447; 36415; 86850; 86900; 86901; A9270; C1776 ×5; J0131; J1100; J1885 ×2; J2405; J2704 ×3; J3490; J7120; 73560-26-RT; 73560-RT; 80048; 82962; 85014; 85018; 85025; 97110-GP; 97116-GP; 97161-GP; 97530-GP; J0690; J1815-GY; J2270

== ENCOUNTER 2019-10-29 01:23 | Emergency (ER) | payer MEDICARE, OTHER ==
[2019-10-29] MEDS ORDERED: HYDROmorphone 1 MG/ML Syringe IM ONE (02:37)
[2019-10-29] MEDS ORDERED: Ondansetron 4 MG Tab.DIS PO ONE (02:38)
--- NOTE | 2019-10-29 04:00 | CT ---
INDICATION: Low back pain. TECHNIQUE: Multiple noncontrast CT images were obtained through the lumbar spine. COMPARISON: CT lumbar spine 08/27/2017. FINDINGS: The lumbar lordosis is preserved. Mild biconvex thoracolumbar curvature. Vertebral heights maintained. No acute fracture. T12-L1: Advanced disc degeneration and disc height loss. No spinal canal or neural foraminal narrowing. L1-2: Shallow posterior disc bulge. No spinal canal or neural foraminal narrowing. L2-3: Mild retrolisthesis, not significantly changed. Moderate disc height loss. Posterior disc bulge. [id number] bilateral facet arthropathy. Mild spinal canal narrowing. Mild left without right neural foraminal narrowing. L3-4: Trace anterolisthesis, not significantly changed. Mild disc height loss. Left eccentric disc bulge. Moderately advanced bilateral facet arthropathy. Thickening of ligamentum flavum. Moderate spinal canal narrowing. Moderate left and mild right neural foraminal narrowing. L4-5: Grade 1 anterolisthesis measuring 4 mm, not significantly changed. Posterior disc bulge. Advanced bilateral facet arthropathy. Mild spinal canal narrowing. Mild bilateral neural foraminal narrowing. L5-S1: Advanced right and moderate left facet arthropathy. No spinal canal or neural foraminal narrowing. Sacroiliac joint degenerative changes. Aortoiliac atherosclerotic calcifications. Colonic diverticulosis. IMPRESSION: 1. No acute fracture. 2. At L3-4, moderate spinal canal narrowing. Moderate left neural foraminal narrowing with potential impingement of the exiting left L3 nerve root. Moderately advanced facet arthropathy 3. At L4-5, grade 1 anterolisthesis associated with advanced facet arthropathy, not significantly changed. 4. At L5-S1, advanced right and moderate left facet arthropathy. Please note that all CT scans at this facility use dose modulation, iterative reconstruction, and/or weight-based dosing when appropriate to reduce radiation dose to as low as reasonably achievable. Dictated by Felix Pfeiffer MD @ Oct 29 2019 12:56PM Signed by Dr. Felix Pfeiffer @ Oct 29 2019 1:40PM
--- NOTE | 2019-10-29 04:44 | EDM.PDOC ---
ED HPI GENERAL MEDICAL PROBLEM - General Chief Complaint: Back Pain or Injury Stated Complaint: BACK PAIN Time Seen by Provider: 10/29/19 01:52 - History of Present Illness INITIAL COMMENTS - FREE TEXT/NARRATIVE: HISTORY AND PHYSICAL: History of present illness: This is a 73-year-old female who presents the ER today complaining of pain to her lower back for approximately 1 week. Patient reports that she saw her primary care physician approximately 2 days ago and was started on a muscle relaxant as well as anti-inflammatory medication but has not had much improvement. Patient reports she has significant pain to her lower back greatest on the right side. She reports pain is exacerbated with any flexion or extension or rotation of her torso. Patient denies any weakness to her upper or lower extremities. Patient has any loss of bowel or bladder function. Patient denies any paresthesias to her perineal region. Patient denies any recent fevers, shakes, chills. Patient denies any recent dental work. Patient denies any recent heavy exertion or lifting. Patient denies any recent fevers, shakes, chills, nausea, vomiting, diarrhea, frequency, urgency. Patient does admit to dysuria but her pain does not appear to be urinary in origin. Review of systems: As per history of present illness and below otherwise all systems reviewed and negative. Past medical history: As per history of present illness and as reviewed below otherwise noncontributory. Surgical history: As per history of present illness and as reviewed below otherwise noncontributory. Social history: No reported history of drug or alcohol abuse. Family history: As per history of present illness and as reviewed below otherwise noncontributory. Constitutional: Patient is oriented to person, place, and time. Appears well- developed and well-nourished. No distress. HEENT: Moist mucous membranes Head: Normocephalic and atraumatic Eyes: Right eye exhibits no discharge. Left eye exhibits no discharge. No scleral icterus Neck: Normal range of motion. No tracheal deviation present. Cardiovascular: Normal rate and regular rhythm. Pulmonary: Effort normal, no respiratory distress. Abdominal: No distention Musculoskeletal: Normal range of motion Neurologic: Alert and oriented to person, place and time. Skin: [place], warm and dry. Psychiatric: Normal mood and affect. Behavior is normal. Judgment and thought content normal. L2: Cross leg test normal L3: The extension 5 out of 5 L4: Dorsiflexion 5 out of 5 L5: Able to point great toe up L2/3/4: Patellar reflex 2+ S1: Knee flexion 5 out of 5 S2: Plantar flexed toes Patient able to ambulate in the ED without difficulty. Patient with reproducible tenderness to palpation around her buttock on the right side. Patient has reproducible pain with flexion and rotation of her torso. Diagnostics: CT scan of the lumbar spine reveals no acute pathology. Therapeutics: Dilaudid 1 mg IM/Zofran Assessment and plan: 73-year-old female presents ER today complaining of lower back pain. Patient reports that the medication was given by her primary care physician has not been adequately controlling her pain. Patient was given Dilaudid in the ED with significant relief in her pain. Patient has been resting comfortably and feels much improved. Patient reports he feels very comfortable with the plan to be discharged home at this time. Patient be discharged home with a prescription for Ultram to assist her with her pain to take in addition to the medication her doctors have prescribed. There is no evidence of epidural abscess, cauda equina, cord pathology. Given patient's complaint of dysuria, she will be empirically started on Bactrim for UTI. Reassessment at the time of disposition demonstrates that the patient is in no acute distress. The patient has remained stable throughout the entire ED visit and is without objective evidence for acute process requiring urgent intervention or hospitalization. The patient is stable for discharge, counseling is provided as documented above, discussed symptomatic treatment and specific conditions for return. I have spoken with the patient/caregive and discussed todays findings, in addition to providing specific details for the plan of care. Questions are answered and there is agreement with the plan. back Pain Score (Numeric/FACES): 4 - Related Data Allergies Allergy/AdvReac Type Severity Reaction Status Date / Time adhesive Allergy Rash Verified 10/29/19 01:44 Home Meds: Home Meds Citalopram Hydrobromide [Celexa] 40 mg PO DAILY 08/27/17 [History] Levothyroxine Sodium [Synthroid] 100 mcg PO DAILY 08/27/17 [History] Metoprolol Succinate [Toprol XL] 25 mg PO DAILY 08/27/17 [History] Multivitamin [Daily Multiple Vitamin] 1 tab PO DAILY 08/27/17 [History] Simvastatin [Zocor] 40 mg PO DAILY 08/27/17 [History] metFORMIN HCl [Metformin HCl] 1,000 mg PO QPM 08/27/17 [History] Losartan/Hydrochlorothiazide [Losartan-HCTZ 100-12.5 MG] 12.5 - 100 mg PO DAILY 05/19/18 [History] Docusate Sodium [Colace] 100 mg PO BID PRN #60 cap 05/27/18 [Rx] Aspirin [Halfprin] 81 mg PO DAILY 10/29/19 [History] Calcium Carbonate/Vitamin D3 [Calcium 500 mg-Vit D3 600 Unit] 1 tab PO DAILY 10/29/19 [History] Cyclobenzaprine [Flexeril] 10 mg PO BEDTIME PRN 10/29/19 [History] Diclofenac Sodium [Voltaren] 50 mg PO TID PRN 10/29/19 [History] Sulfamethoxazole/Trimethoprim [Bactrim Ds Tablet] 1 each PO BID #10 tablet 10/29/19 [Rx] traMADol [Ultram] 50 mg PO Q6H PRN #20 tab 10/29/19 [Rx] Past Medical History HEENT History: Reports: Other (See Below) Other HEENT History: has upper and lower dentures Cardiovascular History: Reports: Blood Clots/VTE/DVT, High Cholesterol, Hypertension Other Cardiovascular History: hx blood clot to leg 48 years ago during her , has varicose veins Respiratory History: Reports: Other (See Below) Other Respiratory History: "possible sleep apnea, but has not been tested" Gastrointestinal History: Reports: None Genitourinary History: Reports: None [employer]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 Neurological History: Reports: None Psychiatric History: Reports: Depression Endocrine/Metabolic History: Reports: Diabetes, Type II, Hypothyroidism, Obesity/BMI 30+ Hematologic History: Reports: None Immunologic History: Reports: None Oncologic (Cancer) History: Reports: Other (See Below) Other Oncologic History: skin Dermatologic History: Reports: None Other Dermatologic History: skin cancer on nose - Infectious Disease History Infectious Disease History: Reports: Chicken Pox - Past Surgical History Head Surgeries/Procedures: Reports: None HEENT Surgical History: Reports: Adenoidectomy, Tonsillectomy Other HEENT Surgeries/Procedures: skin cancer removed from nose x2 Cardiovascular Surgical History: Reports: None GI Surgical History: Reports: None Female Surgical History: Reports: None Endocrine Surgical History: Reports: None Neurological Surgical History: Reports: None Oncologic Surgical History: Reports: Other (See Below) Other Oncologic Surgeries/Procedures: removal of skin cancer on nose Dermatological Surgical History: Reports: None Social & Family History - Family History Family Medical History: Noncontributory - Tobacco Use Smoking Status *Q: Never Smoker Second Hand Smoke Exposure: No - Caffeine Use Caffeine Use: Reports: Coffee - Recreational Drug Use Recreational Drug Use: No - Living Situation & Occupation Living situation: Reports: Alone Occupation: Retired ED ROS GENERAL - Review of Systems Review Of Systems: Comprehensive ROS is negative, except as noted in HPI. ED EXAM, GENERAL - Physical Exam Exam: See Below Course - Vital Signs Last Recorded V/S: Last Vital Signs Temp 96.5 F L 10/29/19 01:35 Pulse 55 L 10/29/19 05:04 Resp 18 10/29/19 05:04 BP 132/76 10/29/19 05:04 Pulse Ox 95 10/29/19 05:04 - Orders/Labs/Meds Meds: Medications Discontinued Medications Generic Name Dose Route Start Last Admin Trade Name Freq PRN Reason Stop Dose Admin Hydromorphone HCl 1 mg 10/29/19 02:37 10/29/19 03:17 Dilaudid IM 10/29/19 02:38 1 mg ONETIME ONE Administration Ondansetron HCl 4 mg 10/29/19 02:38 10/29/19 03:16 Zofran Odt PO 10/29/19 02:39 4 mg ONETIME ONE Administration Trimethoprim/Sulfamethoxazole 1 tab 10/29/19 04:48 10/29/19 04:59 Septra Ds PO 10/29/19 04:49 1 tab ONETIME ONE Administration Departure - Departure Time of Disposition: 04:45 Disposition: Home, Self-Care 01 Condition: Good Clinical Impression: Low back pain, Dysuria - Discharge Information Prescriptions: Sulfamethoxazole/Trimethoprim [Bactrim Ds Tablet] 1 each PO BID #10 tablet traMADol [Ultram] 50 mg PO Q6H PRN #20 tab PRN Reason: Pain Instructions: Radicular Pain, Acute Back Pain, Adult Referrals: Daniela Vences DO [Primary Care Provider] - Forms: ED Department Discharge Additional Instructions: 1. The etiology of your back pain is likely mechanical in nature. The CT scan of your lumbar spine reveals a significant amount of arthritis. This is likely contributing to the pain that you are experiencing. You likely have muscle spasms resulting in pinched nerves causing pain. Continue taking the pain medication that your doctor has prescribed. We will add Ultram which is a painkiller that can be taken with the medication that your doctor has prescribed. This will help alleviate some of the discomfort. Please make an appointment to follow-up with your family doctor to be reevaluated. 2. You were started on Bactrim DS 1 tablet twice a day for 5 days for the sym ptoms of burning with urination. The pain in your back is unlikely related to a urinary source. The following information is given to patients seen in the emergency department who are being discharged to home. This information is to outline your options for follow-up care. We provide all patients seen in our emergency department with a follow-up referral. The need for follow-up, as well as the timing and circumstances, are variable depending upon the specifics of your emergency department visit. If you don't have a primary care physician on staff, we will provide you with a referral. We always advise you to contact your personal physician following an emergency department visit to inform them of the circumstance of the visit and for follow-up with them and/or the need for any referrals to a consulting specialist. The emergency department will also refer you to a specialist when appropriate. This referral assures that you have the opportunity for follow-up care with a specialist. All of these measure are taken in an effort to provide you with optimal care, which includes your follow-up. Under all circumstances we always encourage you to contact your private physician who remains a resource for coordinating your care. When calling for follow-up care, please make the office aware that this follow-up is from your recent emergency room visit. If for any reason you are refused follow-up, please contact the [facility] Emergency Department at and asked to speak to the emergency department charge nurse. Sepsis Event Note (ED) - Evaluation Sepsis Screening Result: No Definite Risk - Focused Exam Vital Signs: Vital Signs Temp Pulse Resp BP Pulse Ox 10/29/19 05:04 55 L 18 132/76 95 08/14/20 01:35 96.5 F L 62 20 138/71 95
[2019-10-29] MEDS ORDERED: Sulfamethoxazole/Trimethoprim 800-160 MG Tab PO ONE (04:48)
[2019-10-29 05:09] VITALS: BP 132/76; PULSE 55
== END 2019-10-29 05:07 | disposition home or self-care (01) ==
LOC: MW.ED 01:23
DX: M54.5 Low back pain (principal); R30.0 Dysuria; E78.00 Pure hypercholesterolemia, unspecified; I10 Essential (primary) hypertension; E11.9 Type 2 diabetes mellitus without complications; E03.9 Hypothyroidism, unspecified; E66.9 Obesity, unspecified; M19.90 Unspecified osteoarthritis, unspecified site; F32.9 Major depressive disorder, single episode, unspecified; Z68.41 Body mass index [BMI] 40.0-44.9, adult; Z91.048 Other nonmedicinal substance allergy status; Z79.82 Long term (current) use of aspirin; Z79.84 Long term (current) use of oral hypoglycemic drugs; Z79.899 Other long term (current) drug therapy
CPT/HCPCS: 72131; 96372; 99284; A9270; J1170

== ENCOUNTER 2020-11-29 20:55 | Emergency (ER) | payer MEDICARE, OTHER ==
--- NOTE | 2020-11-29 20:59 | EDM.PDOC ---
ED HPI GENERAL MEDICAL PROBLEM - General Stated Complaint: FELL AND HIT HER FACE Time Seen by Provider: 11/29/20 20:58 Source of Information: Reports: Patient History Limitations: Reports: No Limitations - History of Present Illness INITIAL COMMENTS - FREE TEXT/NARRATIVE: 74-year-old female with history of diabetes, hypothyroidism, hypertension, bradycardia presents with a fall. She was getting up and fell and hit the dresser on her left face. She denies LOC but admits to headache and neck pain and left facial pain. She broke the dresser upon the fall. She had a hard time getting up from the floor. She lives alone and was supposed to use a walker and cane for ambulation but is noncompliant. She denies chest pain, shortness of breath, palpitation, blurry vision, nausea, vomiting, diarrhea, abdominal pain. She also scraped her left elbow and complains of left elbow pain. ROS: A 10-point review of systems, other than pertinent positives and negatives as stated per HPI, is otherwise negative Past medical history: No additional pertinent history Past Surgical history: No additional pertinent history Social history: No additional pertinent history Family history: No additional pertinent history PHYSICAL EXAM General: AOx4, GCS = 15, No distress HEENT: dry mucous membrane, mild tenderness to left zygoma Neck: supple, no meningismus, no Kernig or Brudzinski Cardiac: S1S2 RRR Respiratory: CTAB, no crackles or rales, no wheezing Abdomen: Soft, nontender, no rebound or guarding, nondistended, no pulsatile mass. Back: mild tenderness to C-spine Musculoskeletal: NVI distally, left elbow tender to palpation with abrasion, no deformity Neuro: No focal deficits, CN 2 - 12 WNL. Left Face/Facial Pain Score (Numeric/FACES): 3 - Related Data Allergies Allergy/AdvReac Type Severity Reaction Status Date / Time adhesive Allergy Rash Verified 11/29/20 22:15 Home Meds: Home Meds Citalopram Hydrobromide [Celexa] 40 mg PO DAILY 08/27/17 [History] Levothyroxine Sodium [Synthroid] 100 mcg PO DAILY 08/27/17 [History] Metoprolol Succinate [Toprol XL] 25 mg PO DAILY 08/27/17 [History] Multivitamin [Daily Multiple Vitamin] 1 tab PO DAILY 08/27/17 [History] Simvastatin [Zocor] 40 mg PO DAILY 08/27/17 [History] metFORMIN HCl [Metformin HCl] 1,000 mg PO QPM 08/27/17 [History] Losartan/Hydrochlorothiazide [Losartan-HCTZ 100-12.5 MG] 12.5 - 100 mg PO DAILY 05/19/18 [History] Docusate Sodium [Colace] 100 mg PO BID PRN #60 cap 05/27/18 [Rx] Aspirin [Halfprin] 81 mg PO DAILY 10/29/19 [History] Calcium Carbonate/Vitamin D3 [Calcium 500 mg-Vit D3 600 Unit] 1 tab PO DAILY 10/29/19 [History] Cyclobenzaprine [Flexeril] 10 mg PO BEDTIME PRN 10/29/19 [History] Diclofenac Sodium [Voltaren] 50 mg PO TID PRN 10/29/19 [History] Sulfamethoxazole/Trimethoprim [Bactrim Ds Tablet] 1 each PO BID #10 tablet [Rx] traMADol [Ultram] 50 mg PO Q6H PRN #20 tab 10/29/19 [Rx] Past Medical History HEENT History: Reports: Other (See Below) Other HEENT History: has upper and lower dentures Cardiovascular History: Reports: Blood Clots/VTE/DVT, High Cholesterol, Hypertension Other Cardiovascular History: hx blood clot to leg 48 years ago during her , has varicose veins Respiratory History: Reports: Other (See Below) Other Respiratory History: "possible sleep apnea, but has not been tested" Gastrointestinal History: Reports: None Genitourinary History: Reports: None FAMILY AND MARRIAGE COUNSELLOR History: Reports: Musculoskeletal History: Reports: Osteoarthritis Other Musculoskeletal History: both knees, reports low back pain which she feels is weight related. Neurological History: Reports: None Psychiatric History: Reports: Depression Endocrine/Metabolic History: Reports: Diabetes, Type II, Hypothyroidism, Obesity/BMI 30+ Hematologic History: Reports: None Immunologic History: Reports: None Oncologic (Cancer) History: Reports: Other (See Below) Other Oncologic History: skin Dermatologic History: Reports: None Other Dermatologic History: skin cancer on nose - Infectious Disease History Infectious Disease History: Reports: Chicken Pox - Past Surgical History Head Surgeries/Procedures: Reports: None HEENT Surgical History: Reports: Adenoidectomy, Tonsillectomy Other HEENT Surgeries/Procedures: skin cancer removed from nose x2 Cardiovascular Surgical History: Reports: None GI Surgical History: Reports: None Female Surgical History: Reports: None Endocrine Surgical History: Reports: None Neurological Surgical History: Reports: None Oncologic Surgical History: Reports: Other (See Below) Other Oncologic Surgeries/Procedures: removal of skin cancer on nose Dermatological Surgical History: Reports: None Social & Family History - Family History Family Medical History: No Pertinent Family History - Caffeine Use Caffeine Use: Reports: Coffee - Living Situation & Occupation Living situation: Reports: Alone Occupation: Retired ED ROS GENERAL - Review of Systems Review Of Systems: See Below (see dictation) ED EXAM, GENERAL - Physical Exam Exam: See Below (see dictation) ED GENERAL MEDICAL PROCEDURES - Splinting Left Upper Extremity Splint Site: left elbow Pre-procedure NV status: Normal Post-procedure NV status: Normal Splint Material: Plaster Splint Design: Posterior (Posterior long-arm), Sling Applied & Form Fitted By: Nurse Provider Post-Splint Application NV Check: NV Status Normal, Good Position Complications: No #1 Interpretation EKG Interpretation Comments: Heart rate = 62 bpm, normal sinus rhythm, normal QRS interval, no STEMI. EKG and rhythm strip interpreted by me at 1013 Course - Vital Signs Last Recorded V/S: Last Vital Signs Temp 97.2 F 11/29/20 22:09 Pulse 60 11/29/20 23:52 Resp 18 11/29/20 23:52 BP 127/95 H 11/29/20 23:52 Pulse Ox 98 11/29/20 23:52 - Orders/Labs/Meds Orders: Active Orders 24 hr Category Date Time Status Cardiac Monitoring [RC] . DIRECTED Care 11/29/20 21:58 Active Pulse Oximetry [RC] ASDIRECTED Care 11/29/20 21:58 Active Sodium Chloride 0.9% [Saline Flush] Med 11/29/20 21:58 Active 10 ml FLUSH ASDIRECTED PRN Sodium Chloride 0.9% [Saline Flush] Med 11/29/20 21:58 Active 2.5 ml FLUSH ASDIRECTED PRN DME for Discharge [COMM] Stat Ot 11/30/20 00:49 Ordered Saline Lock Insert [OM.PC] Stat Ot 11/29/20 21:58 Ordered Medication Orders Sodium Chloride (Sodium Chloride 0.9% 10 Ml Syringe) 10 ml FLUSH ASDIRECTED PRN PRN Reason: Keep Vein Open Sodium Chloride (Sodium Chloride 0.9% 2.5 Ml Syringe) 2.5 ml FLUSH ASDIRECTED PRN PRN Reason: Keep Vein Open Labs: Laboratory Tests 11/29/20 11/29/20 11/29/20 Range/Units 22:20 22:20 22:20 WBC 6.99 (4.0-11.0) K/uL RBC 4.55 (4.30-5.90) M/uL Hgb 15.0 (12.0-16.0) g/dL Hct 42.6 (36.0-46.0) % MCV 93.6 (80.0-98.0) fL MCH 33.0 H (27.0-32.0) pg MCHC 35.2 (31.0-37.0) g/dL RDW Std Deviation 44.8 (28.0-62.0) fl RDW Coeff of Naga 13 (11.0-15.0) % Plt Count 185 (150-400) K/uL MPV 10.60 (7.40-12.00) fL Neut % (Auto) 57.4 (48.0-80.0) % Lymph % (Auto) 30.8 (16.0-40.0) % [place] % (Auto) 9.0 (0.0-15.0) % Eos % (Auto) 2.4 (0.0-7.0) % Baso % (Auto) 0.4 (0.0-1.5) % Neut # (Auto) 4.0 (1.4-5.7) K/uL Lymph # (Auto) 2.2 (0.6-2.4) K/uL [place] # (Auto) 0.6 (0.0-0.8) K/uL Eos # (Auto) 0.2 (0.0-0.7) K/uL Baso # (Auto) 0.0 (0.0-0.1) K/uL Nucleated RBC % 0.0 /100WBC Nucleated RBCs # 0 K/uL INR 1.02 Sodium 136 (136-145) mmol/L Potassium 5.0 (3.5-5.1) mmol/L Chloride 102 (98-107) mmol/L Carbon Dioxide 23.6 (21.0-32.0) mmol/L BUN 17 (7.0-18.0) mg/dL Creatinine 1.2 H (0.6-1.0) mg/dL Est Cr Clr Drug Dosing 34.54 mL/min Estimated GFR (MDRD) 44.0 ml/min Glucose 318 H (74-106) mg/dL Calcium 8.8 (8.5-10.1) mg/dL Phosphorus 2.5 L (2.6-4.7) mg/dL Magnesium 2.0 (1.8-2.4) mg/dL Total Bilirubin 0.5 (0.2-1.0) mg/dL AST 45 H (15-37) IU/L ALT 39 (14-63) IU/L Alkaline Phosphatase 86 (46-116) U/L Creatine Kinase 93 (26-308) U/L Troponin I < 0.050 (0.000-0.056) ng/mL Total Protein 6.8 (6.4-8.2) g/dL Albumin 3.4 (3.4-5.0) g/dL Globulin 3.4 (2.6-4.0) g/dL Albumin/Globulin Ratio 1.0 (0.9-1.6) Urine Color Urine Appearance Urine pH (5.0-8.0) Ur Specific Florence (1.001-1.035) Urine Protein (NEGATIVE) mg/dL Urine Glucose (UA) (NEGATIVE) mg/dL Urine Ketones (NEGATIVE) mg/dL Urine Occult Blood (NEGATIVE) Urine Nitrite (NEGATIVE) Urine Bilirubin (NEGATIVE) Urine Urobilinogen (<2.0) EU/dL Ur Leukocyte Esterase (NEGATIVE) SARS-CoV-2 RNA (JORGE) (NEGATIVE) 11/29/20 11/29/20 Range/Units 23:35 23:35 WBC (4.0-11.0) K/uL RBC (4.30-5.90) M/uL Hgb (12.0-16.0) g/dL Hct (36.0-46.0) % MCV (80.0-98.0) fL MCH (27.0-32.0) pg MCHC (31.0-37.0) g/dL RDW Std Deviation (28.0-62.0) fl RDW Coeff of Naga (11.0-15.0) % Plt Count (150-400) K/uL MPV (7.40-12.00) fL Neut % (Auto) (48.0-80.0) % Lymph % (Auto) (16.0-40.0) % V[place] % (Auto) (0.0-15.0) % Eos % (Auto) (0.0-7.0) % Baso % (Auto) (0.0-1.5) % Neut # (Auto) (1.4-5.7) K/uL Lymph # (Auto) (0.6-2.4) K/uL Vinton # (Auto) (0.0-0.8) K/uL Eos # (Auto) (0.0-0.7) K/uL Baso # (Auto) (0.0-0.1) K/uL Nucleated RBC % /100WBC Nucleated RBCs # K/uL INR Sodium (136-145) mmol/L Potassium (3.5-5.1) mmol/L Chloride (98-107) mmol/L Carbon Dioxide (21.0-32.0) mmol/L BUN (7.0-18.0) mg/dL Creatinine (0.6-1.0) mg/dL Est Cr Clr Drug Dosing mL/min Estimated GFR (MDRD) ml/min Glucose (74-106) mg/dL Calcium (8.5-10.1) mg/dL Phosphorus (2.6-4.7) mg/dL Magnesium (1.8-2.4) mg/dL Total Bilirubin (0.2-1.0) mg/dL AST (15-37) IU/L ALT (14-63) IU/L Alkaline Phosphatase (46-116) U/L Creatine Kinase (26-308) U/L Troponin I (0.000-0.056) ng/mL Total Protein (6.4-8.2) g/dL Albumin (3.4-5.0) g/dL Globulin (2.6-4.0) g/dL Albumin/Globulin Ratio (0.9-1.6) Urine Color YELLOW Urine Appearance CLEAR Urine pH 6.0 (5.0-8.0) Ur Specific Florence 1.020 (1.001-1.035) Urine Protein NEGATIVE (NEGATIVE) mg/dL Urine Glucose (UA) >=1000 (NEGATIVE) mg/dL Urine Ketones NEGATIVE (NEGATIVE) mg/dL Urine Occult Blood NEGATIVE (NEGATIVE) Urine Nitrite NEGATIVE (NEGATIVE) Urine Bilirubin NEGATIVE (NEGATIVE) Urine Urobilinogen 0.2 (<2.0) EU/dL Ur Leukocyte Esterase NEGATIVE (NEGATIVE) SARS-CoV-2 RNA (JORGE) NEGATIVE (NEGATIVE) Meds: Medications Generic Name Dose Route Start Last Admin Trade Name Freq PRN Reason Stop Dose Admin Sodium Chloride 10 ml 11/29/20 21:58 Sodium Chloride 0.9% 10 Ml Syringe FLUSH ASDIRECTED PRN Keep Vein Open Sodium Chloride 2.5 ml 11/29/20 21:58 Sodium Chloride 0.9% 2.5 Ml Syringe FLUSH ASDIRECTED PRN Keep Vein Open - Re-Assessments/Exams Free Text/Narrative Re-Assessment/Exam: 11/30/20 01:09 After splinting her left elbow in the ER, she is neurovascular intact distally. She was able to ambulate with a stable gait using a cane to her right hand. She is compliant with using a cane from this point on. The patient improved and is currently stable for discharge. I performed a repeat exam and did not appreciate new abnormal findings. Patient exhibits normal vital signs and has a normal gait on road test. I advised the patient to return to the ER for reevaluation if symptoms worsened, including fever, worsening pain, or any other worrisome symptoms. I instructed the patient to follow up with orthopedics within 2-3 days. MEDICAL DECISION MAKING: I reviewed the patients past medical records, lab and radiographic findings. I discussed the case with the patient. My differential diagnosis included: Left elbow fracture, facial fracture, electrolyte abn ormality. CT head was unremarkable for acute abnormalities. CT cervical spine demonstrated degenerative disease. Her electrolytes were unremarkable, she has a history of diabetes and her blood sugar = 318 with no signs of acidosis. Her troponin and EKG were unremarkable, I do not suspect atypical chest pain. Left elbow demonstrated occult fracture to the radial head. She was placed in a spli nt and sling. Her left upper extremity demonstrated good distal perfusion, warm, pink, cap refill <2 seconds, compartments soft, pulses equal in both extremities. Patient understands to return immediately for worsening pain, swelling, fever, numbness/tingling or other concerns and to f/u with ORTHO. Departure - Departure Time of Disposition: 01:12 Disposition: Home, Self-Care 01 Condition: Good Clinical Impression: Hyperglycemia, Radial head fracture, Contusion of face, Degenerative cervical disc - Discharge Information *PRESCRIPTION DRUG MONITORING PROGRAM REVIEWED*: Not Applicable *COPY OF PRESCRIPTION DRUG MONITORING REPORT IN PATIENT FABRIZIO: Not Applicable Instructions: Hyperglycemia, [id number], Degenerative Disk Disease, Facial or Scalp Contusion, Radial Head Elbow Fracture With Rehab-SportsMed Referrals: Daniela Vences DO [Primary Care Provider] - 3 Days Damien Patiño DO [Ordering Only Provider] - 3 Days Isrrael Pavon MD [Physician] - 3 Days Forms: ED Department Discharge Additional Instructions: The need for follow-up, as well as the timing and circumstances, are variable depending upon the specifics of your emergency department visit. If you don't have a primary care physician on staff, we will provide you with a referral. We always advise you to contact your personal physician following an emergency department visit to inform them of the circumstance of the visit and for follow-up with them and/or the need for any referrals to a consulting specialist. The emergency department will also refer you to a specialist when appropriate. This referral assures that you have the opportunity for follow-up care with a specialist. All of these measure are taken in an effort to provide you with optimal care, which includes your follow-up. Under all circumstances we always encourage you to contact your private physician who remains a resource for coordinating your care. When calling for follow-up care, please make the office aware that this follow-up is from your recent emergency room visit. If for any reason you are refused follow-up, please contact the [facility] Emergency Department at and asked to speak to the emergency department charge nurse. If you do not have a primary care doctor, please follow up with the clinics below within 3-[address] [facility] [address] [place] [address] [facility] [address] [place] [address] Sepsis Event Note (ED) - Focused Exam Vital Signs: Vital Signs Temp Pulse Resp BP Pulse Ox 11/29/20 23:52 60 18 127/95 H 98 11/29/20 22:09 97.2 F 65 16 155/100 H 95 - My Orders Last 24 Hours: My Active Orders 11/29/20 21:58 Cardiac Monitoring [RC] . DIRECTED Pulse Oximetry [RC] ASDIRECTED Sodium Chloride 0.9% [Saline Flush] 10 ml FLUSH ASDIRECTED PRN Sodium Chloride 0.9% [Saline Flush] 2.5 ml FLUSH ASDIRECTED PRN Saline Lock Insert [OM.PC] Stat 11/30/20 00:49 DME for Discharge [COMM] Stat - Assessment/Plan Last 24 Hours: My Active Orders 11/29/20 21:58 Cardiac Monitoring [RC] . DIRECTED Pulse Oximetry [RC] ASDIRECTED Sodium Chloride 0.9% [Saline Flush] 10 ml FLUSH ASDIRECTED PRN Sodium Chloride 0.9% [Saline Flush] 2.5 ml FLUSH ASDIRECTED PRN Saline Lock Insert [OM.PC] Stat 11/30/20 00:49 DME for Discharge [COMM] Stat
--- NOTE | 2020-11-29 21:56 | CT ---
INDICATION: Pain after fall COMPARISON: None available. TECHNIQUE: CT examination of the head was performed with 5 mm thick axial and 2 mm thick coronal and sagittal sections without intravenous contrast. Images were obtained from the vertex of the skull through the skull base, and I examined the images with the brain and bone windows. Please note that all CT scans at this facility use dose modulation, iterative reconstruction, and/or weight-based dosing when appropriate to reduce radiation dose to as low as reasonably achievable. FINDINGS: : The brain is normal in appearance for the patient`s age on today`s study, with no sign of mass lesion, mass effect, hemorrhage, or edema. The ventricles and sulci are normal in appearance for the patient`s age. The visualized portions of the orbits are normal in appearance. The visualized portions of the paranasal sinuses and mastoids are clear. The osseous structures are normal in their appearance with no sign of abnormality in the skull base or calvarium. IMPRESSION: Normal noncontrast CT of the head for the patient`s age. No sign of closed head injury. Please note that all CT scans at this facility use dose modulation, iterative reconstruction, and/or weight-based dosing when appropriate to reduce radiation dose to as low as reasonably achievable. Dictated by Curt Claros MD @ 11/29/2020 9:55:48 PM (Electronically Signed)
[2020-11-29] MEDS ORDERED: Sodium Chloride 0.9% 2.5 ML Syringe FLUSH PRN (21:58)
[2020-11-29] MEDS ORDERED: Sodium Chloride 0.9% 10 ML Syringe FLUSH PRN (21:58)
--- NOTE | 2020-11-29 22:04 | CT ---
INDICATION: Pain after fall. COMPARISON: None available TECHNIQUE: CT examination of the cervical spine is performed without contrast using spiral technique. 1.5 mm thick axial and 2 mm thick sagittal and coronal reconstructions were made. Please note that all CT scans at this facility use dose modulation, iterative reconstruction, and/or weight-based dosing when appropriate to reduce radiation dose to as low as reasonably achievable. FINDINGS: : There is no sign of fracture or subluxation. The cervical vertebral bodies are normal in height and are in anatomic alignment. There is severe C5-6 and C6-7 disc degenerative disease. There is mild diffuse disc bulging and posterior osteophytic ridging at these levels. There is moderate left and mild right C5-6 foraminal stenosis from uncovertebral joint hypertrophy. There is mild bilateral C6-7 foraminal stenosis from uncovertebral joint hypertrophy. There is mild C4-5 disc degenerative disease. The rest of the intervertebral discs are normal in height. There is no sign of prevertebral soft tissue swelling. The airway structures are normal in appearance. The visualized skull base is normal in appearance. The visualized inferior brain is normal in appearance for the patient`s age. The apices of the lungs are clear. IMPRESSION: No sign of acute osseous injury to the cervical spine. Severe C5-6 and C6-7 disc degenerative disease. Mild C4-5 disc degenerative disease. Please note that all CT scans at this facility use dose modulation, iterative reconstruction, and/or weight-based dosing when appropriate to reduce radiation dose to as low as reasonably achievable. Dictated by Curt Claros MD @ 11/29/2020 10:03:19 PM (Electronically Signed)
--- NOTE | 2020-11-29 22:26 | CT ---
INDICATION: Pain after fall TECHNIQUE: CT maxillofacial without contrast. COMPARISON: None FINDINGS: Facial bones: No fractures or bone lesions. Specifically the nasal bones, temporomandibular joints, maxilla and mandible appear intact. Orbits and globes: Unremarkable. Globes are intact. No sign of intraorbital hemorrhage or emphysema. Sinuses: No acute or significant findings. Soft tissues: Small left buccal subcutaneous hematoma. IMPRESSION: Left buccal subcutaneous hematoma without evidence of acute facial fracture. Please note that all CT scans at this facility use dose modulation, iterative reconstruction, and/or weight-based dosing when appropriate to reduce radiation dose to as low as reasonably achievable. Dictated by Edy Chambers MD @ 11/29/2020 10:23:56 PM (Electronically Signed)
[2020-11-29 22:52] LABS: BLOOD UREA NITROGEN,BUN 17 mg/dL (7.0-18.0); CARBON DIOXIDE,CO2 23.6 mmol/L (21.0-32.0); CHLORIDE,CL 102 mmol/L (98-107); GLUCOSE RANDOM 318 mg/dL (74-106); SODIUM,NA 136 mmol/L (136-145)
--- NOTE | 2020-11-29 23:03 | CR ---
INDICATION: Pain after fall COMPARISON: None available. FINDINGS: The left elbow is examined with AP, lateral, and oblique views. There is elevation of the posterior fat pad, suggesting an elbow joint effusion. On the lateral view, there is a hemispherical, well corticated ossific density overlapping the anterior radial head, anterior to the intercondylar region of the distal humerus. It is unclear where this os ossific structure is positioned on the other views. It does not appear to be an acute fracture fragment, well corticated margins. I cannot identify any acute osseous injury, specifically with no definite fracture of the radial head, but the joint effusion suggests an occult fracture. Follow-up films or CT scanning may be helpful to identify a fracture. There is mild primary osteoarthritis of the articulation of the capitellum and radial head. The soft tissues are normal in appearance without sign of radio-opaque foreign body. IMPRESSION: Mild elbow joint effusion without definite acute fracture, findings suggesting an occult fracture. Follow-up films or CT scanning may be helpful to identify an occult fracture. Hemispherical, well corticated osseous structure overlapping the anterior radial head on the lateral view of uncertain etiology. Dictated by Curt Claros MD @ 11/29/2020 11:01:44 PM (Electronically Signed)
--- NOTE | 2020-11-29 23:03 | CR ---
HISTORY: Fall. Near syncopal episode. COMPARISON: None available FINDINGS: A portable erect AP view of the chest was obtained at 22 25 hours. The lungs are clear. No focal or diffuse infiltrates are present. The heart is normal in size. The mediastinum is normal in appearance. The osseous structures are normal in appearance for the patient`s age. IMPRESSION: Normal portable chest single view. Dictated by Curt Claros MD @ 11/29/2020 11:02:33 PM (Electronically Signed)
[2020-11-30 01:11] VITALS: BP 131/91; PULSE 59
== END 2020-11-30 01:25 | disposition home or self-care (01) ==
LOC: MW.ED 20:55
DX: S52.122A Displaced fracture of head of left radius, initial encounter for closed fracture (principal); S00.83XA Contusion of other part of head, initial encounter; E11.65 Type 2 diabetes mellitus with hyperglycemia; M50.30 Other cervical disc degeneration, unspecified cervical region; E78.00 Pure hypercholesterolemia, unspecified; I10 Essential (primary) hypertension; M19.90 Unspecified osteoarthritis, unspecified site; E03.9 Hypothyroidism, unspecified; E66.9 Obesity, unspecified; Z68.42 Body mass index [BMI] 45.0-49.9, adult; Z91.048 Other nonmedicinal substance allergy status; Z79.82 Long term (current) use of aspirin; Z79.84 Long term (current) use of oral hypoglycemic drugs; Z79.899 Other long term (current) drug therapy; Z20.822 Contact with and (suspected) exposure to COVID-19; W18.30XA Fall on same level, unspecified, initial encounter
CPT/HCPCS: 29105; 36415; 70450; 70486; 71045; 72125; 73080; 80053; 81003; 82550; 83735; 84100; 84484; 85025; 85610; 93005; 99284; U0002

== ENCOUNTER 2023-01-01 06:36 | Day surgery (SDC) | payer MEDICARE, OTHER ==
[~2023-01-01 06:36] MED LIST changes: -Famotidine 20 MG/2 ML SDV IVPUSH SCH; -Ketorolac 15 MG/ML SDV IVPUSH SCH; +Lactated Ringers 1,000 ML IV SCH; -Scopolamine 1.5 MG Transdermal Patch TRDERM SCH; +cefOXitin 2 GM in Sodium Chloride 0.9% 50 ML IV SCH
[2023-01-01] MEDS ORDERED: propofoL 50 ML ONE (07:32)
[2023-01-01] MEDS ORDERED: Water For Injection, Sterile 20 ML ONE (07:33)
[2023-01-01] MEDS ORDERED: Dexmedetomidine 200 MCG/2 ML SDV ONE (07:33)
[2023-01-01] MEDS ORDERED: Ondansetron 4 MG/2 ML SDV ONE (07:45)
[2023-01-01] MEDS ORDERED: Bupivacaine 0.5%/EPINEPHrine 1:200,000 30 ML SDV ONE (07:47)
[2023-01-01] MEDS ORDERED: Lidocaine 2% 11 ML Jelly Filled Syringe ONE (07:48)
[2023-01-01] MEDS ORDERED: Albuterol 0.083% 2.5 MG/3 ML Neb Soln NEB PRN (07:57)
[2023-01-01] MEDS ORDERED: Metoclopramide 10 MG/2 ML SDV IVPUSH PRN (07:57)
[2023-01-01] MEDS ORDERED: fentaNYL 50 MCG/ML SDV IVPUSH PRN (07:57)
[2023-01-01] MEDS ORDERED: Morphine 2 MG/ML SYRINGE IVPUSH PRN (07:57)
[2023-01-01] MEDS ORDERED: HYDROmorphone 1 MG/ML Syringe IVPUSH PRN (07:57)
[2023-01-01] MEDS ORDERED: droPERidol 5 MG/2 ML SDV IVPUSH PRN (07:57)
[2023-01-01] MEDS ORDERED: Naloxone 0.4 MG/ML SDV IVPUSH PRN (07:57)
[2023-01-01] MEDS ORDERED: Ondansetron 4 MG/2 ML SDV IVPUSH PRN (07:57)
[2023-01-01] MEDS ORDERED: cefOXitin 1 GM Vial ONE (08:52)
[2023-01-01] MEDS ORDERED: ePHEDrine 50 MG/ML SDV ONE (08:52)
[2023-01-01] MEDS ORDERED: Propofol 200 MG/20 ML SDV ONE ×4 (09:11→09:51)
[2023-01-01] MEDS ORDERED: Ketorolac 30 MG/ML SDV ONE (09:58)
[2023-01-01 12:26] VITALS: BP 112/42; PULSE 53
== END 2023-01-01 12:10 | disposition home or self-care (01) ==
LOC: MW.SDS 06:36
PROVIDERS: ATTEND Surgery
DX: K64.8 Other hemorrhoids (principal); F32.A Depression, unspecified; I10 Essential (primary) hypertension; E03.9 Hypothyroidism, unspecified; F41.9 Anxiety disorder, unspecified; E78.00 Pure hypercholesterolemia, unspecified; E11.9 Type 2 diabetes mellitus without complications; Z79.82 Long term (current) use of aspirin; Z79.84 Long term (current) use of oral hypoglycemic drugs; Z79.899 Other long term (current) drug therapy; Z87.891 Personal history of nicotine dependence; Z79.890 Hormone replacement therapy; Z79.4 Long term (current) use of insulin
CPT/HCPCS: 46948; A9270; J0131; J0694; J1885; J2405; J2704; J7120; J3490

== ENCOUNTER 2024-03-16 06:39 | Day surgery (SDC) | payer MEDICARE, OTHER ==
[~2024-03-16 06:39] MED LIST changes: -Acetaminophen 1,000 MG in Premix Bag 1 BAG IV SCH; -Lactated Ringers 1,000 ML IV SCH; +Sodium Chloride 0.9% 10 ML Syringe FLUSH PRN; +Sodium Chloride 0.9% 2.5 ML Syringe FLUSH PRN; +Sodium Chloride 0.9% 20 ML SDV IV PRN; -cefOXitin 2 GM in Sodium Chloride 0.9% 50 ML IV SCH
[2024-03-16] MEDS: Lactated Ringers 1,000 ML IV SCH (07:12)
[2024-03-16] MEDS ORDERED: propofoL 500 MG/50 ML 50 ML ONE (07:28)
[2024-03-16] MEDS ORDERED: ePHEDrine 50 MG/ML SDV ONE (08:10)
[2024-03-16] MEDS ORDERED: fentaNYL 100 MCG/2 ML SDV ONE (08:14)
[2024-03-16] MEDS ORDERED: Ketamine 500 mg/10 ML MDV ONE (08:24)
[2024-03-16 10:08] VITALS: BP 132/59; PULSE 55
== END 2024-03-16 10:30 | disposition home or self-care (01) ==
LOC: MW.SDS 06:39
PROVIDERS: ATTEND Surgery
DX: D12.0 Benign neoplasm of cecum (principal); D12.2 Benign neoplasm of ascending colon; D12.3 Benign neoplasm of transverse colon; D12.4 Benign neoplasm of descending colon; D12.5 Benign neoplasm of sigmoid colon; K62.1 Rectal polyp; I10 Essential (primary) hypertension; E11.9 Type 2 diabetes mellitus without complications; E03.9 Hypothyroidism, unspecified; E78.00 Pure hypercholesterolemia, unspecified; F32.A Depression, unspecified; Z87.891 Personal history of nicotine dependence; Z79.84 Long term (current) use of oral hypoglycemic drugs; Z79.4 Long term (current) use of insulin; Z79.890 Hormone replacement therapy; Z79.899 Other long term (current) drug therapy
CPT/HCPCS: 45380; 45385; 88305; J2704; J3010; J3490; J7120; 00811; 45381; 99100